=== PATIENT | female | born 1945 | race Caucasian/White ===

== ENCOUNTER → 2017-03-12 | Outpatient (CLI) | payer OTHER ==
[~2017-03-12] MED LIST: ACETAMINOPHEN325 M3 PO; ALBUTEROL2.5 MG/31 INH; ALLERGY RELIEF180 MG PO; ASPIR 8181 MG PO; B-12 DOTS500 MCG PO; CALTRATE PLUS1 EACH PO; CYCLOBENZAPRINE5 MG PO; DOCUSATE SODIU100 MG PO; DULOXETINE HCL20 MG; FENTANYL PATCH75 MCG TRANSDERM; FERROUS GLUCON324 M2 PO; FIRVANQ50 MG/1 ML PO; GABAPENTIN 100100 MG PO; HYDROCODONE-AP1 EAC6 PO; IPRAT-ALBUT 0.5-3 ML INH; K-DUR 20 MEQ T20 MEQ PO; KETOROLAC30 MG/1 M5 IM; LASIX 20 MG TAB20 MG PO; LASIX 40 MG TAB40 M1 PO; LIPITOR 20 MG T20 M1 PO; MIRALAX17 G1 PO; MIRALAX17 GM PO; OXYCODONE HCL10 MG PO; PACERONE 200 M200 M1 PO; PEPCID20 MG PO; POTASSIUM20 PO; PREDNISONE 10 M10 MG PO; PREDNISONE 20 M20 M1 PO; PREDNISONE 20 M20 MG PO; PROTONIX40 M1 PO; PYRIDOXINE HCL100 MG PO; REMERON15 MG PO; SIMVASTATIN40 MG PO; SPIRIVA INH; SYNTHROID125 MC1 PO; THERA-M1 EAC1 PO; TRAMADOL 50 MG50 MG PO; UNICOMPLEX M TA1 TA1 PO; VITAMIN B-1100 M1 PO; VITAMIN C500 M2 PO; VOLTAREN GEL 1100 G2 TOP
== END ==
LOC: HYPER 06:36
DX: S81.802A Unspecified open wound, left lower leg, initial encounter (principal); L89.613 Pressure ulcer of right heel, stage 3; L89.623 Pressure ulcer of left heel, stage 3; L97.822 Non-pressure chronic ulcer of other part of left lower leg with fat layer exposed; M62.81 Muscle weakness (generalized); G61.81 Chronic inflammatory demyelinating polyneuritis; G62.9 Polyneuropathy, unspecified; E78.5 Hyperlipidemia, unspecified; E03.9 Hypothyroidism, unspecified; Z90.710 Acquired absence of both cervix and uterus; Z72.89 Other problems related to lifestyle; X58.XXXA Exposure to other specified factors, initial encounter; Y93.89 Activity, other specified; Y92.89 Other specified places as the place of occurrence of the external cause; Y99.8 Other external cause status

== ENCOUNTER → 2017-03-26 | Outpatient (CLI) | payer OTHER | LOC: HYPER 06:46 | DX: L89.613 Pressure ulcer of right heel, stage 3 (principal); L89.623 Pressure ulcer of left heel, stage 3; L97.822 Non-pressure chronic ulcer of other part of left lower leg with fat layer exposed; M62.81 Muscle weakness (generalized); G61.81 Chronic inflammatory demyelinating polyneuritis; G62.9 Polyneuropathy, unspecified; E78.5 Hyperlipidemia, unspecified; E03.9 Hypothyroidism, unspecified; I10 Essential (primary) hypertension; F17.210 Nicotine dependence, cigarettes, uncomplicated; Z90.710 Acquired absence of both cervix and uterus; Z72.89 Other problems related to lifestyle ==

== ENCOUNTER → 2017-04-02 | Outpatient (CLI) | payer OTHER | LOC: HYPER 06:42 | DX: L97.822 Non-pressure chronic ulcer of other part of left lower leg with fat layer exposed (principal); L89.620 Pressure ulcer of left heel, unstageable; L89.610 Pressure ulcer of right heel, unstageable; M62.81 Muscle weakness (generalized); G61.81 Chronic inflammatory demyelinating polyneuritis; G62.9 Polyneuropathy, unspecified; E78.5 Hyperlipidemia, unspecified; E03.9 Hypothyroidism, unspecified; M81.0 Age-related osteoporosis without current pathological fracture; I10 Essential (primary) hypertension; Z90.710 Acquired absence of both cervix and uterus; F17.200 Nicotine dependence, unspecified, uncomplicated; Z72.89 Other problems related to lifestyle ==

== ENCOUNTER → 2017-04-09 | Outpatient (CLI) | payer OTHER | LOC: HYPER 08:13 | DX: L89.629 Pressure ulcer of left heel, unspecified stage (principal); L89.619 Pressure ulcer of right heel, unspecified stage; S81.802D Unspecified open wound, left lower leg, subsequent encounter; L84 Corns and callosities; E78.5 Hyperlipidemia, unspecified; E03.9 Hypothyroidism, unspecified; M81.0 Age-related osteoporosis without current pathological fracture; I10 Essential (primary) hypertension; G62.9 Polyneuropathy, unspecified; G61.81 Chronic inflammatory demyelinating polyneuritis; F17.200 Nicotine dependence, unspecified, uncomplicated; Z72.89 Other problems related to lifestyle; Z90.710 Acquired absence of both cervix and uterus; X58.XXXD Exposure to other specified factors, subsequent encounter ==

== ENCOUNTER → 2017-04-16 | Outpatient (CLI) | payer OTHER | LOC: HYPER 07:05 | DX: L89.623 Pressure ulcer of left heel, stage 3 (principal); L89.610 Pressure ulcer of right heel, unstageable; L97.822 Non-pressure chronic ulcer of other part of left lower leg with fat layer exposed; G62.9 Polyneuropathy, unspecified; E78.5 Hyperlipidemia, unspecified; E03.9 Hypothyroidism, unspecified; M81.0 Age-related osteoporosis without current pathological fracture; I10 Essential (primary) hypertension; F17.200 Nicotine dependence, unspecified, uncomplicated; Z90.710 Acquired absence of both cervix and uterus; Z98.49 Cataract extraction status, unspecified eye; Z72.89 Other problems related to lifestyle ==

== ENCOUNTER → 2017-04-23 | Outpatient (CLI) | payer OTHER | LOC: HYPER 06:47 | DX: L89.623 Pressure ulcer of left heel, stage 3 (principal); L89.610 Pressure ulcer of right heel, unstageable; L97.822 Non-pressure chronic ulcer of other part of left lower leg with fat layer exposed; I10 Essential (primary) hypertension; E78.5 Hyperlipidemia, unspecified; E03.9 Hypothyroidism, unspecified; M81.0 Age-related osteoporosis without current pathological fracture; G62.9 Polyneuropathy, unspecified; F17.200 Nicotine dependence, unspecified, uncomplicated; Z72.89 Other problems related to lifestyle; Z90.710 Acquired absence of both cervix and uterus; Z98.49 Cataract extraction status, unspecified eye ==

== ENCOUNTER → 2017-04-30 | Outpatient (CLI) | payer OTHER | LOC: HYPER 06:39 | DX: L89.623 Pressure ulcer of left heel, stage 3 (principal); L89.610 Pressure ulcer of right heel, unstageable; L97.822 Non-pressure chronic ulcer of other part of left lower leg with fat layer exposed; G62.9 Polyneuropathy, unspecified; E78.5 Hyperlipidemia, unspecified; E03.9 Hypothyroidism, unspecified; M81.0 Age-related osteoporosis without current pathological fracture; I10 Essential (primary) hypertension; F17.200 Nicotine dependence, unspecified, uncomplicated; Z90.710 Acquired absence of both cervix and uterus; Z98.49 Cataract extraction status, unspecified eye; Z72.89 Other problems related to lifestyle ==

== ENCOUNTER → 2017-05-14 | Outpatient (CLI) | payer OTHER | LOC: HYPER 06:46 | DX: L89.623 Pressure ulcer of left heel, stage 3 (principal); L89.610 Pressure ulcer of right heel, unstageable; L97.822 Non-pressure chronic ulcer of other part of left lower leg with fat layer exposed; E78.5 Hyperlipidemia, unspecified; E03.9 Hypothyroidism, unspecified; G61.81 Chronic inflammatory demyelinating polyneuritis; I10 Essential (primary) hypertension; G62.9 Polyneuropathy, unspecified; M81.0 Age-related osteoporosis without current pathological fracture; F17.200 Nicotine dependence, unspecified, uncomplicated; Z72.89 Other problems related to lifestyle; Z90.710 Acquired absence of both cervix and uterus ==

== ENCOUNTER → 2017-06-04 | Outpatient (CLI) | payer OTHER | LOC: HYPER 06:49 | DX: L89.623 Pressure ulcer of left heel, stage 3 (principal); L89.610 Pressure ulcer of right heel, unstageable; S81.802D Unspecified open wound, left lower leg, subsequent encounter; L97.822 Non-pressure chronic ulcer of other part of left lower leg with fat layer exposed; E78.5 Hyperlipidemia, unspecified; E03.9 Hypothyroidism, unspecified; M81.0 Age-related osteoporosis without current pathological fracture; M62.81 Muscle weakness (generalized); G61.81 Chronic inflammatory demyelinating polyneuritis; G62.9 Polyneuropathy, unspecified; F17.200 Nicotine dependence, unspecified, uncomplicated; Z90.710 Acquired absence of both cervix and uterus; X58.XXXD Exposure to other specified factors, subsequent encounter ==

== ENCOUNTER → 2017-06-18 | Outpatient (CLI) | payer OTHER | LOC: HYPER 07:47 | DX: L89.623 Pressure ulcer of left heel, stage 3 (principal); L89.610 Pressure ulcer of right heel, unstageable; L97.822 Non-pressure chronic ulcer of other part of left lower leg with fat layer exposed; M62.81 Muscle weakness (generalized); G61.81 Chronic inflammatory demyelinating polyneuritis; G62.9 Polyneuropathy, unspecified; E78.5 Hyperlipidemia, unspecified; E03.9 Hypothyroidism, unspecified; I10 Essential (primary) hypertension; F17.200 Nicotine dependence, unspecified, uncomplicated; Z90.710 Acquired absence of both cervix and uterus ==

== ENCOUNTER → 2017-07-09 | Outpatient (CLI) | payer OTHER | LOC: HYPER 06:48 | DX: L89.623 Pressure ulcer of left heel, stage 3 (principal); L89.613 Pressure ulcer of right heel, stage 3; L97.822 Non-pressure chronic ulcer of other part of left lower leg with fat layer exposed; I10 Essential (primary) hypertension; M62.81 Muscle weakness (generalized); E78.5 Hyperlipidemia, unspecified; E03.9 Hypothyroidism, unspecified; M81.0 Age-related osteoporosis without current pathological fracture; G61.81 Chronic inflammatory demyelinating polyneuritis; G62.9 Polyneuropathy, unspecified; F17.200 Nicotine dependence, unspecified, uncomplicated; Z87.01 Personal history of pneumonia (recurrent); Z90.710 Acquired absence of both cervix and uterus ==

== ENCOUNTER → 2017-07-23 | Outpatient (CLI) | payer OTHER | LOC: HYPER 06:40 | DX: L89.623 Pressure ulcer of left heel, stage 3 (principal); L89.613 Pressure ulcer of right heel, stage 3; L97.822 Non-pressure chronic ulcer of other part of left lower leg with fat layer exposed; S81.811A Laceration without foreign body, right lower leg, initial encounter; I10 Essential (primary) hypertension; E78.5 Hyperlipidemia, unspecified; E03.9 Hypothyroidism, unspecified; M81.0 Age-related osteoporosis without current pathological fracture; M62.81 Muscle weakness (generalized); G61.81 Chronic inflammatory demyelinating polyneuritis; G62.9 Polyneuropathy, unspecified; F17.200 Nicotine dependence, unspecified, uncomplicated; Z87.01 Personal history of pneumonia (recurrent); Z90.710 Acquired absence of both cervix and uterus; X58.XXXA Exposure to other specified factors, initial encounter; Y93.89 Activity, other specified; Y92.89 Other specified places as the place of occurrence of the external cause; Y99.8 Other external cause status ==

== ENCOUNTER → 2017-08-06 | Outpatient (CLI) | payer OTHER | LOC: HYPER 07:03 | DX: L89.623 Pressure ulcer of left heel, stage 3 (principal); L89.613 Pressure ulcer of right heel, stage 3; L97.828 Non-pressure chronic ulcer of other part of left lower leg with other specified severity; S81.811D Laceration without foreign body, right lower leg, subsequent encounter; M62.81 Muscle weakness (generalized); G61.81 Chronic inflammatory demyelinating polyneuritis; G62.9 Polyneuropathy, unspecified; X58.XXXD Exposure to other specified factors, subsequent encounter ==

== ENCOUNTER → 2017-08-13 | Outpatient (CLI) | payer OTHER | LOC: HYPER 07:02 | DX: L89.613 Pressure ulcer of right heel, stage 3 (principal); L89.623 Pressure ulcer of left heel, stage 3; L97.822 Non-pressure chronic ulcer of other part of left lower leg with fat layer exposed; I10 Essential (primary) hypertension; E78.5 Hyperlipidemia, unspecified; E03.9 Hypothyroidism, unspecified; M62.81 Muscle weakness (generalized); M81.0 Age-related osteoporosis without current pathological fracture; G61.81 Chronic inflammatory demyelinating polyneuritis; G62.9 Polyneuropathy, unspecified; F17.200 Nicotine dependence, unspecified, uncomplicated; Z87.01 Personal history of pneumonia (recurrent); Z90.710 Acquired absence of both cervix and uterus; Z98.49 Cataract extraction status, unspecified eye ==

== ENCOUNTER → 2017-08-27 | Outpatient (CLI) | payer OTHER | LOC: HYPER 06:51 | DX: L89.623 Pressure ulcer of left heel, stage 3 (principal); L89.613 Pressure ulcer of right heel, stage 3; S81.811D Laceration without foreign body, right lower leg, subsequent encounter; S81.802A Unspecified open wound, left lower leg, initial encounter; I10 Essential (primary) hypertension; E78.5 Hyperlipidemia, unspecified; E03.9 Hypothyroidism, unspecified; M62.81 Muscle weakness (generalized); G61.81 Chronic inflammatory demyelinating polyneuritis; G62.9 Polyneuropathy, unspecified; M81.0 Age-related osteoporosis without current pathological fracture; F17.200 Nicotine dependence, unspecified, uncomplicated; Z87.01 Personal history of pneumonia (recurrent); Z90.710 Acquired absence of both cervix and uterus; Z98.49 Cataract extraction status, unspecified eye; X58.XXXD Exposure to other specified factors, subsequent encounter; X58.XXXA Exposure to other specified factors, initial encounter; Y93.89 Activity, other specified; Y92.89 Other specified places as the place of occurrence of the external cause; Y99.8 Other external cause status ==

== ENCOUNTER 2017-09-10 13:30 | Inpatient (IN) | payer OTHER ==
[~2017-09-10] VITALS: Ht 170.2 cm; Wt 89.4 kg
[2017-09-10] VITALS (10 sets, daily range): BP systolic 84–125; BP diastolic 41–63
--- NOTE | ~2017-09-10 | HC ---
[facility] [place] [address] CONSULTATION Name: ANETA LECHUGA Room #: 455- ADM IN M.R.#: [id number] Admission: 09/10/17 Attend Phys: Dez Milan MD Discharge: Date of : 46 Report #: [id number] THIS REPORT FOR: //name// CC: Dez Kruger DATE OF SERVICE: 09/10/2017 REFERRING PROVIDER: Dr. Dez Milan. REASON FOR CONSULTATION: Traumatic left lower extremity wound with hematoma. HISTORY OF PRESENT ILLNESS: The patient is a 72-year-old female who unfortunately developed a traumatic hematoma to the left lower leg on the posterolateral aspect and developed pain and swelling with a large hematoma. Unfortunately, she developed spontaneous rupture of the skin with acute hemorrhaging and was brought to the Emergency Department with hypotension. The patient was noted to have a moderate amount of bleeding at the scene as well as in the Emergency Room; however pressure allowed for hemostasis and the wound was dressed. The patient has hypotension likely from acute blood loss anemia from the event and has been admitted to the ICU from the Emergency Room where I am asked to evaluate as the patient has nonviable tissue and a large hematoma that will be in need of clot evacuation. PAST MEDICAL HISTORY: Atrial fibrillation, depression, hypothyroidism, CHF, GERD and CIDP. HOME MEDICATIONS: Amiodarone, vitamin C, cyanocobalamin, ferrous gluconate, Neurontin, Lasix, Synthroid, MiraLax, Caltrate, Protonix, pyridoxine, prednisone, Remeron, Zocor, multivitamin, Ultram. ALLERGIES: No known drug allergies. SOCIAL HISTORY: She does not utilize tobacco or illicit drugs, does drink alcohol socially and never to excess. FAMILY HISTORY: Reviewed and noncontributory. REVIEW OF SYSTEMS: GENERAL: The patient denies nocturnal fevers or chills. HEENT: No change in vision, change in hearing. NECK: No swelling or difficulty swallowing. HEART: No chest pain or palpitations. LUNGS: No cough or shortness of breath. ABDOMEN: No nausea, no vomiting. GENITOURINARY: No dysuria or hematuria. [facility] [address] [place] [address] CONSULTATION Name: ANETA LECHUGA Room #: 455-P [facility] IN M.R.#: [id number] Admission: 09/10/17 Attend Phys: Dez Milan MD Discharge: Date of : 46 Report #: [id number] ENDOCRINE: No polyuria, polydipsia. HEMATOLOGIC: No prior history of significant bleeding, but does have easy bruising. EXTREMITIES: No history of weakness and limited range of motion. NEUROLOGIC: No history of syncope or near syncopal episodes. SKIN AND INTEGUMENT: Multiple issues with nonhealing wounds in the recent past. PSYCHIATRIC: No history of anxiety or depression. PHYSICAL EXAMINATION: VITAL SIGNS: Temperature 97.7, pulse 72, respirations 12, blood pressure 112/51. GENERAL: Alert, in no acute distress. HEENT: Normocephalic, atraumatic. Pupils equal, round, reactive to light. NECK: Supple, without lymphadenopathy. Trachea midline. HEART: Regular rate and rhythm. LUNGS: Clear to auscultation bilaterally. ABDOMEN: Soft, nontender, nondistended. GENITOURINARY: Normal external female genitalia. EXTREMITIES: No clubbing, cyanosis or edema. NEUROLOGIC: Cranial nerves 2-12 are grossly intact. PSYCHIATRIC: Normal mood and affect. SKIN AND INTEGUMENT: Left lower extremity shows palpable pulses with a large hematoma and a laceration split of the skin with a large skin flap overlying the lateral to posterior left lower leg. There is no active bleeding at this time. LABORATORY AND X-RAY DATA: CBC shows white blood cell count 9.8 thousand, hemoglobin 8.4, platelets 415,000. Creatinine is 1.6, albumin is 2.6. INR 1.00 with PTT of 21.4. Her hemoglobin unfortunately has dropped this evening from an admission level of 8.4 to 6.9. ASSESSMENT AND PLAN: A 72-year-old female with a traumatic injury to the left lower leg with a large hematoma and an open wound with a dusky overlying skin. At this time, the patient does have hemostasis and we will continue with aggressive local wound care and we will proceed to the Operating Room tomorrow morning for clot evacuation and debridement of any nonviable tissue. Risks, benefits and alternatives of that procedure have been discussed with the patient in detail and she agrees to proceed as outlined. She will be transfused as indicated by the primary care service. I sincerely appreciate this consult. We will follow along and leave any further recommendations and the patient's chart is appropriate. <ELECTRONICALLY SIGNED> By: Flory Garcia MD, FACS 09/12/17 0853 [id number] [id number] Flory Garcia MD, FACS /nt
--- NOTE | ~2017-09-10 | O ---
[facility] [place] [address] OPERATIVE REPORT Name: ANETA LECHUGA Room #: 455-P [facility] IN M.R.#: [id number] Admission: 09/10/17 Attend Phys: Dez Milan MD Discharge: Date of : 46 Report #: [id number] THIS REPORT FOR: //name// CC: Dez Cabezas [facility] DATE OF SERVICE: 09/11/2017 PREOPERATIVE DIAGNOSIS: Traumatic open wound to the left lower extremity with nonviable tissue and large hematoma. POSTOPERATIVE DIAGNOSIS: Traumatic open wound to the left lower extremity with nonviable tissue and large hematoma. PROCEDURE: Excisional debridement of necrotic skin, subcutaneous tissue and muscle/fascia from her left lower leg traumatic open wound with evacuation of a large hematoma, ultimately measuring 32 x 22 cm in dimension (704 cm2). Preoperative wound measurements were similar as the overall dimensions of the wound did not change substantially through the debridement. SURGEON: Flory Garcia MD. RADAR SCIENTIST: None. ANESTHESIA: General endotracheal anesthesia. ESTIMATED BLOOD LOSS: Minimal (less than 5 mL), although significant clot on the order of 500 mL were evacuated. SPECIMEN: Blood clot and debrided tissue to pathology. INDICATIONS: The patient is a 72-year-old female who developed a large traumatic hematoma to the posterior and lateral aspect of the left lower leg. Unfortunately, she had repeated insults to that area and had spontaneous hemorrhage with a large skin flap being created and this necessitated emergent intervention with pressure. Luckily, the patient did clot off; however, she has nonviable tissue with a large hematoma that necessitates the above-mentioned procedure today. DESCRIPTION OF PROCEDURE: After explaining the risks, benefits and alternatives of the procedure with the patient in detail in the preoperative holding area and obtaining written consent, the patient was brought to the operating room and placed supine on the operating room table. After conducting a thorough timeout procedure verifying correct patient and procedure, the patient was given general endotracheal anesthesia. Once adequate anesthesia was obtained, she was given a preoperative dose of antibiotics in line with the SCIP protocol and her left leg [address] [address] OPERATIVE REPORT Name: ANETA LECHUGA Room #: 455-P ADM IN M.R.#: [id number] Admission: 09/10/17 Attend Phys: Dez Milan MD Discharge: Date of : 46 Report #: [id number] was elevated in a candy cane stirrup. The patient's left lower leg was now circumferentially prepped and draped in standard surgical sterile fashion. I was able to elevate the skin flap and scoop out nearly 500 mL of clot. Upon doing so, the subcutaneous tissue and portions of the underlying muscle were seen to be overtly necrotic and electrocautery was used to debride all of this back to healthy vascularized tissue throughout. The skin flap itself appeared dusky and ecchymotic, however, but was not acutely necrotic and that intraoperative phone consultation with Dr. Bruner was carried out and we elected to leave the skin flap in place in the event that it would heal, it would provide significant benefit in long-term wound healing for the patient. If it does become necrotic, she will necessitate repeat debridement of this with placement of an extracellular skin graft. Nonetheless, at this juncture, the wound was copiously irrigated. Meticulous hemostasis was obtained with electrocautery. I then dressed the wound with thrombin-soaked Kerlix gauze, Xeroform over top with 4 x 4, fluffs, loose Kerlix circumferential wrap from toes to knee, and an Vaibhav wrap. At the end of the procedure, all instruments, needle and sponge counts were correct. The patient tolerated the procedure without incident, was awakened in the operating room and transitioned to the recovery room in stable condition with no apparent complications. <ELECTRONICALLY SIGNED> By: Flory Garcia MD, FACS 09/12/17 0853 [id number] [id number] Flory Garcia MD, FACS /nt
--- NOTE | ~2017-09-10 | HC ---
[facility] [place] [address] CONSULTATION Name: ANETA LECHUGA Room #: [facility] IN M.R.#: [id number] Admission: 09/10/17 Attend Phys: Dez Milan MD Discharge: Date of : 46 Report #: [id number] THIS REPORT FOR: //name// CC: Dez Cabezas [facility] DATE OF SERVICE: 09/10/2017 CHIEF COMPLAINT: Traumatic hematoma to the left lower extremity. HISTORY OF PRESENT ILLNESS: This is a 72-year-old female patient with whom I am familiar from ongoing followup in the outpatient setting. She was in fact seen this morning in the wound care clinic for a healing hematoma to her right leg and bilateral heel ulcers. All these areas were noted to be doing better and she was feeling well and happy to be back in her home setting after multiple hospitalizations and rehabilitation stays. She was at home and may have bumped her left leg on a car door. She developed pain and swelling with a spontaneous rupture of the skin and bleeding. She is brought to the Emergency Department with hypotension. She is not currently taking any blood thinners, but has been on them in the past. She was noted to have a moderate amount of bleeding at the scene, although is under control at this time. The patient has been having issues with hypotension, possibly due to multiple medications. ALLERGIES: None. MEDICATIONS: Include amiodarone, vitamin C, cyanocobalamin, ferrous gluconate, Neurontin, Lasix, Synthroid, MiraLax, Caltrate, Protonix, pyridoxine, prednisone, Remeron, Zocor, vitamins, Ultram, there may be other medications. The patient's relates that she is on 25 different medications. PAST MEDICAL HISTORY: Positive for atrial fibrillation, depression, hypothyroidism, congestive heart failure, gastroesophageal reflux, CIDP. SOCIAL HISTORY: The patient admits to occasional alcohol use. No history of smoking. REVIEW OF SYSTEMS: CONSTITUTIONAL: The patient denies fever, chills or weight loss. NEUROLOGICAL: The patient did have a brief syncopal episode at home. ENT: The patient denies earache, nasal drainage or sore throat. CARDIOVASCULAR: The patient denies chest pain or palpitations, diaphoresis. PULMONARY: The patient denies cough or shortness of breath. GASTROINTESTINAL: The patient denies nausea, vomiting, diarrhea or abdominal pain. ORTHOPEDIC: The patient does complain of pain, swelling of the left lower extremity. [facility] [address] [place] [address] CONSULTATION Name: ANETA LECHUGA Room #: 455-P [facility] IN ..#: [id number] Admission: 09/10/17 Attend Phys: Dez Milan MD Discharge: Date of : 46 Report #: [id number] Other systems in a 14-point review of systems are negative. PHYSICAL EXAMINATION: VITAL SIGNS: At this time include pulse 72, respiratory rate 12, blood pressure 112/51, temperature is 97.7. GENERAL: This is a chronically ill-appearing female patient who appears to be in moderate discomfort. HEENT: Head normocephalic. Nose and throat are clear. NECK: Supple. LUNGS: Clear. HEART: Regular rhythm. ABDOMEN: Soft, bowel sounds present. EXTREMITIES: Examination of the lower extremities demonstrate palpable distal pulses. She has a very large hematoma with a laceration or split in the skin involving the left lateral lower leg. It is not actively bleeding at this time. It is tender, however. She has a history of a previous hematoma involving the proximal portion of the right leg. This appears to be clean and granulating. Bilateral heel ulcers are noted. They are also relatively clean and granulating. NEUROLOGIC: The patient is alert and moving all 4 extremities spontaneously. She does have a foot drop on the right side, however. CLINICAL IMPRESSION: 1. Traumatic hematoma, left lower extremity. 2. Recurrent hypotension. 3. Prior pressure ulcerations to both heels, stage 3. 4. Foot drop on the right side. RECOMMENDATIONS: At this point in time, we will ask General Surgery to see her for debridement and evacuation of hematoma. It is my hope that maybe some of the overlying skin will be salvageable to make this an easier path to closure. We will ask Cardiology to see her with regard to her history of recurring persistent hypotension. We will recommend Xeroform gauze to the left leg, pending surgical evaluation. Recommend aggressive nutritional support. She is being admitted to intensive care at this time. Continue with silver alginate to both heels and right lateral leg. She may need an AFO for her right-sided foot drop. The etiology of this is unclear at this time. I appreciate being asked to see her in consultation. <ELECTRONICALLY SIGNED> By: Gordon Bruner MD 09/14/17 [id number] Gordon Bruner MD /nt
[2017-09-10 13:48] LABS: HEMATOCRIT 26.9 % (37.0-47.0); HEMOGLOBIN 8.4 gm/dL (12.0-15.0); MCH 27.4 pg (26.0-34.0); MCHC 31.3 g/dL (28.0-37.0); MCV 87.5 fL (80.0-100.0); RBC 3.08 mil/uL (4.20-5.00); RDW 23.3 % (10.5-14.5); WBC 9.8 thou/uL (4.0-11.0)
[2017-09-10 13:57] LABS: CALCIUM 8.5 mg/dL (8.5-10.1); CREATININE 1.6 mg/dL (0.6-1.0); POTASSIUM 4.4 mmol/L (3.5-5.1)
[2017-09-10] MEDS ORDERED: ACETAMINOPHEN325 M3 PO (13:59)
[2017-09-10] MEDS ORDERED: PACERONE 200 M200 M1 PO (14:00)
[2017-09-10] MEDS ORDERED: B-12 DOTS500 MCG PO (14:01)
[2017-09-10] MEDS ORDERED: VITAMIN C500 M2 PO (14:01)
[2017-09-10] MEDS ORDERED: ASPIR 8181 MG PO (14:01)
[2017-09-10] MEDS ORDERED: GABAPENTIN 100100 MG PO (14:02)
[2017-09-10] MEDS ORDERED: DOCUSATE SODIU100 MG PO (14:02)
[2017-09-10] MEDS ORDERED: FERROUS GLUCON324 M2 PO (14:02)
[2017-09-10 14:03] LABS: ALBUMIN 2.6 g/dL (3.4-5.0); APTT 21.4 Seconds (24.5-32.8); PROTIME 9.9 Seconds (9.3-11.4); TOTAL BILIRUBIN 0.4 mg/dL (<0.1-1.0); TOTAL PROTEIN 5.4 g/dL (6.4-8.2)
[2017-09-10] MEDS ORDERED: LASIX 20 MG TAB20 MG PO (14:03)
[2017-09-10] MEDS ORDERED: SYNTHROID125 MC1 PO (14:04)
[2017-09-10] MEDS ORDERED: MIRALAX17 G1 PO (14:04)
[2017-09-10] MEDS ORDERED: CALTRATE PLUS1 EACH PO (14:05)
[2017-09-10] MEDS ORDERED: PROTONIX40 M1 PO (14:20)
[2017-09-10] MEDS ORDERED: PREDNISONE 10 M10 MG PO (14:20)
[2017-09-10] MEDS ORDERED: VITAMIN B-1100 M1 PO (14:21)
[2017-09-10] MEDS ORDERED: PYRIDOXINE HCL100 MG PO (14:21)
[2017-09-10] MEDS ORDERED: REMERON15 MG PO (14:21)
[2017-09-10] MEDS ORDERED: SIMVASTATIN40 MG PO (14:21)
[2017-09-10] MEDS ORDERED: TRAMADOL 50 MG50 MG PO (14:22)
[2017-09-11] VITALS (10 sets, daily range): BP systolic 107–129; BP diastolic 52–66
[2017-09-11 04:44] LABS: CALCIUM 7.9 mg/dL (8.5-10.1); CREATININE 1.1 mg/dL (0.6-1.0); POTASSIUM 4.3 mmol/L (3.5-5.1)
[2017-09-11 05:17] LABS: MCH 27.6 pg (26.0-34.0); RBC 2.31 mil/uL (4.20-5.00)
[2017-09-11 05:19] LABS: MCV 86.4 fL (80.0-100.0)
[2017-09-11 05:21] LABS: HEMATOCRIT 19.9 % (37.0-47.0); HEMOGLOBIN 6.4 gm/dL (12.0-15.0)
[2017-09-12 04:18] VITALS: BP 120/60
[2017-09-12 06:01] LABS: HEMOGLOBIN 6.8 gm/dL (12.0-15.0); MCH 28.1 pg (26.0-34.0); MCV 86.1 fL (80.0-100.0)
[2017-09-12 06:03] LABS: MCHC 32.6 g/dL (28.0-37.0); PLATELET COUNT 336 thou/uL (150-400); RBC 2.44 mil/uL (4.20-5.00); RDW 24.1 % (10.5-14.5); WBC 9.4 thou/uL (4.0-11.0)
[2017-09-12 06:15] LABS: CALCIUM 8.4 mg/dL (8.5-10.1); CREATININE 1.3 mg/dL (0.6-1.0); POTASSIUM 3.7 mmol/L (3.5-5.1)
[2017-09-12 08:30] VITALS: BP 105/47
[2017-09-12 08:51] LABS: ABSOLUTE NEUTROPHILS 7.8 thou/uL (1.4-8.2); ANISOCYTOSIS 2+; HYPOCHROMASIA 3+; NUCLEATED RBCS 1 /100WBC; PLATELET ESTIMATE NORMAL; POIKILOCYTOSIS 1+; POLYCHROMASIA 2+
[2017-09-12 12:01] VITALS: BP 97/48; BP 98/54
[2017-09-12 15:50] VITALS: BP 98/54
[2017-09-12 15:59] VITALS: BP 98/54
[2017-09-12 20:06] VITALS: BP 104/53
[2017-09-12 20:20] LABS: HEMATOCRIT 26.1 % (37.0-47.0); HEMOGLOBIN 8.2 gm/dL (12.0-15.0); MCH 26.8 pg (26.0-34.0); MCHC 31.5 g/dL (28.0-37.0); MCV 85.2 fL (80.0-100.0); RBC 3.06 mil/uL (4.20-5.00); RDW 23.5 % (10.5-14.5); WBC 13.5 thou/uL (4.0-11.0)
[2017-09-13 04:51] VITALS: BP 124/62
[2017-09-13 07:33] VITALS: BP 113/52
[2017-09-13 17:02] VITALS: BP 119/61
[2017-09-13 19:59] VITALS: BP 114/63
[2017-09-14 05:19] VITALS: BP 135/72
[2017-09-14 05:29] LABS: HEMATOCRIT 22.9 % (37.0-47.0); HEMOGLOBIN 7.5 gm/dL (12.0-15.0); MCH 27.9 pg (26.0-34.0); MCHC 32.7 g/dL (28.0-37.0); MCV 85.3 fL (80.0-100.0); PLATELET COUNT 350 thou/uL (150-400); RBC 2.69 mil/uL (4.20-5.00); RDW 24.9 % (10.5-14.5); WBC 7.7 thou/uL (4.0-11.0)
[2017-09-14 08:00] VITALS: BP 147/74
[2017-09-14 09:26] LABS: ABSOLUTE NEUTROPHILS 6.2 thou/uL (1.4-8.2)
[2017-09-14 09:27] LABS: ANISOCYTOSIS 2+; BURR CELLS OCCASIONAL; OVALOCYTES 1+; TEARDROPS OCCASIONAL
[2017-09-14 15:37] VITALS: BP 123/68
[2017-09-14 19:39] VITALS: BP 122/64
[2017-09-15 03:35] VITALS: BP 160/83
[2017-09-15 06:14] LABS: HEMATOCRIT 24.6 % (37.0-47.0); MCH 27.7 pg (26.0-34.0); MCHC 32.3 g/dL (28.0-37.0); MCV 85.6 fL (80.0-100.0); PLATELET COUNT 370 thou/uL (150-400); RBC 2.88 mil/uL (4.20-5.00); RDW 24.2 % (10.5-14.5); WBC 7.3 thou/uL (4.0-11.0)
[2017-09-15 06:49] LABS: ANISOCYTOSIS 1+; METAMYELOCYTES 1 %
[2017-09-15 08:00] VITALS: BP 143/82
[2017-09-15 16:00] VITALS: BP 120/64
[2017-09-15 19:30] VITALS: BP 139/72
[2017-09-16 04:53] VITALS: BP 144/80
[2017-09-16 08:57] VITALS: BP 140/65
[2017-09-16 16:38] VITALS: BP 116/52
[2017-09-16 19:31] VITALS: BP 102/54
[2017-09-17 04:10] VITALS: BP 121/65
[2017-09-17 07:35] VITALS: BP 128/58
[2017-09-17 09:36] VITALS: BP 98/54
[2017-09-17] MEDS ORDERED: PREDNISONE 20 M20 M1 PO (10:40)
== END 2017-09-17 16:30 | disposition short-term general hospital (02) | DRG 579 ==
LOC: ER 13:30 → ICU 14:26 → EROBS 14:26 → ICU 15:03 → 4W 09-11 18:46
PROVIDERS: Emergency Medicine; Hospitalist; Surgery
PROC: 0HCLXZZ Extirpation of Matter from Left Lower Leg Skin, External Approach (ICD-10-PCS; principal; 2017-09-11)
PROC: 0KBT0ZZ Excision of Left Lower Leg Muscle, Open Approach (ICD-10-PCS; principal; 2017-09-11)
PROC: 30233N1 Transfusion of Nonautologous Red Blood Cells into Peripheral Vein, Percutaneous Approach (ICD-10-PCS; principal; 2017-09-11)
DX: S80.12XA Contusion of left lower leg, initial encounter (principal); L89.623 Pressure ulcer of left heel, stage 3; L89.613 Pressure ulcer of right heel, stage 3; D62 Acute posthemorrhagic anemia; G61.81 Chronic inflammatory demyelinating polyneuritis; S81.812A Laceration without foreign body, left lower leg, initial encounter; F32.9 Major depressive disorder, single episode, unspecified; E03.9 Hypothyroidism, unspecified; I50.9 Heart failure, unspecified; K21.9 Gastro-esophageal reflux disease without esophagitis; I95.9 Hypotension, unspecified; I11.0 Hypertensive heart disease with heart failure; E11.40 Type 2 diabetes mellitus with diabetic neuropathy, unspecified; E78.00 Pure hypercholesterolemia, unspecified; G47.33 Obstructive sleep apnea (adult) (pediatric); I48.0 Paroxysmal atrial fibrillation; S81.802A Unspecified open wound, left lower leg, initial encounter; E78.5 Hyperlipidemia, unspecified; J84.17 Other interstitial pulmonary diseases with fibrosis in diseases classified elsewhere; M21.371 Foot drop, right foot; Z79.82 Long term (current) use of aspirin; Z79.899 Other long term (current) drug therapy; Z98.49 Cataract extraction status, unspecified eye; Z90.49 Acquired absence of other specified parts of digestive tract; Z90.710 Acquired absence of both cervix and uterus; Z87.891 Personal history of nicotine dependence; Z87.81 Personal history of (healed) traumatic fracture; Z79.52 Long term (current) use of systemic steroids; Z82.49 Family history of ischemic heart disease and other diseases of the circulatory system; X58.XXXA Exposure to other specified factors, initial encounter; Y93.89 Activity, other specified; Y92.89 Other specified places as the place of occurrence of the external cause; Y99.8 Other external cause status
CPT/HCPCS: 10045; 10078; 50010; 50101; 50386; 57091; 62110; 62900; 64037; 70005

== ENCOUNTER 2017-09-17 12:45 | Inpatient (IN) | payer OTHER ==
[~2017-09-17] VITALS: Ht 170.2 cm; Wt 87.7 kg
--- NOTE | ~2017-09-17 | PLAN ---
[facility] [place] [address] REHAB UNIT PLAN OF CARE Name: ANETA LECHUGA Room #: 515-P ADM IN M.R.#: [id number] Admission: 09/17/17 Attend Phys: Deon Salazar MD Discharge: Date of : 46 Report #: [id number] THIS REPORT FOR: //name// CC: Deon Cabezas [facility] DATE OF SERVICE: 09/19/2017 PROGRESS NOTE/OVERALL PLAN OF CARE SUBJECTIVE: The patient is seen back today in followup. Last recorded temperature 37, pulse 77, respirations 16, blood pressure 106/53. The patient is in no distress. No focal calf swelling. Transfers are max assist. Gait is max assist to 8 feet in the parallel bars. Bed mobility is max assist. ASSESSMENT: 1. Chronic inflammatory demyelinating polyneuropathy. 2. Medical complexity with generalized debilitation. 3. Left lower extremity traumatic hematoma status post clot evacuation with debridement on 09/11/2017. 4. Acute blood loss anemia. 5. Hypotension, resolving. 6. Anxiety with depression. 7. Right foot drop. 8. Hyperlipidemia. 9. Hypothyroidism. PLAN: The overall plan of care is based on the preadmission screen, post-admission physician evaluation, and information garnered from therapy assessments. 1. Estimated length of stay is probably at least 2 weeks to 3 weeks pending progress. 2. Medical prognosis is reasonably good. 3. Anticipated interventions include the interdisciplinary acute inpatient rehabilitation program with PT and OT, working with her rehab nursing assisting regarding medication management, skin care prophylaxis, bowel and bladder issues and nursing education. Case management is involved as well as the interdisciplinary rehab therapy team. 4. Anticipated functional outcomes would be for her to achieve a level with basic transfers at the wheelchair level so that she can return back to the home setting. Ideally, she could take some small steps with the front-wheeled walker as well. We will need to see how she does. 5. Discharge destination is back home with her . 6. Expected therapy by discipline includes PT and OT 1 and 1-1/2 hours per day, [address] [address] REHAB UNIT PLAN OF CARE Name: ANETA LECHUGA Room #: 515-P [facility] IN M.R.#: [id number] Admission: 09/17/17 Attend Phys: Deon Salazar MD Discharge: Date of : 46 Report #: [id number] each five days a week throughout the duration of the acute inpatient rehabilitation stay. <ELECTRONICALLY SIGNED> By: Deon Salazar MD 09/23/17 1528 [id number] 0027 Deon Salazar MD /nt
--- NOTE | ~2017-09-17 | HC ---
[facility] [place] [address] CONSULTATION Name: ANETA LECHUGA Room #: 515-P [facility] IN M.R.#: [id number] Admission: 09/17/17 Attend Phys: Deon Salazar MD Discharge: Date of : 46 Report #: [id number] THIS REPORT FOR: //name// CC: Deon Cabezas [facility] DATE OF SERVICE: 09/18/2017 REFERRING PROVIDER: Deon Salazar M.D. REASON FOR CONSULTATION: Left lower extremity wound. HISTORY OF PRESENT ILLNESS: The patient is a 72-year-old female who was admitted a week ago with a traumatic injury to the left lower extremity with large hematoma and a skin flap with necrotic tissue and hematoma. The patient underwent debridement of the wound with ongoing wound care and has now been admitted to the inpatient rehabilitation unit, and I am asked to evaluate and follow for her wound as there is a questionably viable skin flap that may necessitate ongoing debridement. The patient is resting in bed currently and has no complaints today. PAST MEDICAL HISTORY: Atrial fibrillation, depression, hypothyroidism, CHF, GERD and CIDP. HOME MEDICATIONS: Amiodarone, vitamin C, cyanocobalamin, ferrous gluconate, Neurontin, Lasix, Synthroid, MiraLax, Caltrate, Protonix, pyridoxine, prednisone, Remeron, Zocor, multivitamin and Ultram. ALLERGIES: No known drug allergies. SOCIAL HISTORY: No tobacco or illicit drugs, does drink alcohol socially and never to excess. FAMILY HISTORY: Reviewed and noncontributory. REVIEW OF SYSTEMS: GENERAL: The patient denies nocturnal fevers or chills. HEENT: No change of vision, change in hearing. NECK: No swelling or difficulty swallowing. HEART: No chest pain or palpitations. LUNGS: No cough or shortness of breath. ABDOMEN: No nausea or vomiting. GENITOURINARY: No dysuria or hematuria. ENDOCRINE: No polyuria, polydipsia. HEMATOLOGIC: No prior history of bleeding, but does have easy bruising. EXTREMITIES: No history weakness or limited range of motion. [facility] [address] [place] [address] CONSULTATION Name: ANETA LECHUGA Room #: 515-P [facility] IN M.R.#: [id number] Admission: 09/17/17 Attend Phys: Deon Salazar MD Discharge: Date of : 46 Report #: [id number] NEUROLOGIC: No history of syncope or near syncopal episodes. SKIN AND INTEGUMENT: Multiple issues with nonhealing wounds in the past. PSYCHIATRIC: No history of anxiety or depression. PHYSICAL EXAMINATION: VITAL SIGNS: Temperature 98.2, pulse 78, respirations 16, blood pressure 128/63. GENERAL: Alert, in no acute distress. HEENT: Normocephalic, atraumatic. Pupils equal, round, reactive to light. NECK: Supple, without lymphadenopathy. Trachea is midline. HEART: Regular rate and rhythm. LUNGS: Clear to auscultation bilaterally. ABDOMEN: Soft, nontender, nondistended. GENITOURINARY: Normal external female genitalia. EXTREMITIES: No clubbing, cyanosis or edema. NEUROLOGIC: Cranial nerves 2-12 are grossly intact. PSYCHIATRIC: Normal mood and affect. SKIN AND INTEGUMENT: Left lower extremity wound is currently dressed with reports of currently viable skin flap. LABORATORY AND X-RAY DATA: No current labs today. ASSESSMENT AND PLAN: A 72-year-old female with a traumatic injury to the left lower leg that underwent debridement with a hematoma clot evacuation. The patient does have a large skin flap after debridement that was left in place due to questionable viability and this is undergoing aggressive local wound care at this time. Currently, the skin flap does appear that it may be viable and as such, we will continue aggressive local wound care, optimization of her nutritional status and monitoring. If her flap does become nonviable or necrotic, she would necessitate repeat debridement. She should continue with all other medical cares as current including aggressive inpatient rehabilitative efforts. I sincerely appreciate this consult. I will follow along and leave any further recommendations in the patient's chart as appropriate. <ELECTRONICALLY SIGNED> By: Flory Garcia MD, FACS 09/22/17 0938 [id number] [id number] Flory Garcia MD, FACS /nt
--- NOTE | ~2017-09-17 | HC ---
[facility] [place] [address] CONSULTATION Name: ANETA LECHUGA Room #: 515-P ADM IN M.R.#: [id number] Admission: 09/17/17 Attend Phys: Deon Salazar MD Discharge: Date of : 47 Report #: [id number] THIS REPORT FOR: //name// CC: Deon Kruger REFERRAL PHYSICIAN: Dr. Salazar. PRIMARY PHYSICIAN: Dr. Jocelynn Kruger. REASON FOR REFERRAL: Hypoxia. HISTORY OF PRESENT ILLNESS: The patient is a 72-year-old white female who was admitted to the rehabilitation unit for ongoing therapy for weakness. Since admission, she was found to be hypoxic. She is felt to have COPD. A pulmonary consultation was requested. The patient states she has smoked most of her life. She quit smoking about a year ago. She is not aware of COPD, though she states that she will be surprised if she does not. She patient denies being on any inhalers in the past. She has not needed to use oxygen therapy in the past. Currently, she denies any dyspnea, chest pain, productive cough, night sweats or chills. She has been diagnosed with chronic inflammatory demyelinating polyneuropathy resulting in paresthesias involving her lower extremities. This was noted about a year ago. She has undergone therapy at [facility]. Treatment included apheresis. There was some improvement until recently. Because of the polyneuropathy, she did have mild trauma to the lower extremity resulting in hematoma. This involved the left lower extremity with large hematoma requiring a clot evacuation and debridement of necrotic tissue. Note, the patient had been on anticoagulation for atrial fibrillation. PAST MEDICAL HISTORY: As mentioned above. Also includes hypertension, paroxysmal atrial fibrillation, had been on anticoagulant, which was discontinued, I believe she was on Xarelto or Eliquis, apparent history of chronic inflammatory demyelinating polyneuropathy, anemia, DARWIN, right foot drop, depression, hyperlipidemia, anxiety disorder. PAST SURGICAL HISTORY: Cholecystectomy, hysterectomy, cataract surgery. ALLERGIES: None to medications. HOME MEDICATIONS: List reviewed as in MAY. [facility] [address] [place] [address] CONSULTATION Name: ANETA LECHUGA Room #: 515-P [facility] IN M.R.#: [id number] Admission: 09/17/17 Attend Phys: Deon Salazar MD Discharge: Date of : 47 Report #: [id number] FAMILY HISTORY: Noncontributory. SOCIAL HISTORY: The patient has smoked more than 57 years, quit about a year ago. She denies any alcohol use. She is . REVIEW OF SYSTEMS: As mentioned above. It is notable for progressive weakness, particularly involving the lower extremities due to chronic inflammatory demyelinating polyneuropathy. She had been requiring the use of a walker; at times, a wheelchair to get around. Otherwise, 10-point system review is negative. PHYSICAL EXAMINATION: GENERAL: She is awake, alert, in no apparent distress. VITAL SIGNS: Temperature is 97.4 degrees Fahrenheit, pulse is 70, respiratory rate is 18, blood pressure 130/60 mmHg and saturation 96%. HEENT: Normocephalic, atraumatic. NECK: Supple, without any lymphadenopathy or thyromegaly. CHEST: Breath sounds are good bilaterally without any rales or wheezes. CARDIOVASCULAR: Normal S1, S2. No murmurs or gallop. There is no JVD. There is no carotid bruit. Pulses are 2+/4+ bilaterally. ABDOMEN: Soft, nontender, no organomegaly or masses felt. GENITOURINARY: Deferred. RECTAL: Deferred. EXTREMITIES: No cyanosis or clubbing, mild edema in lower extremities. Both lower extremities are wrapped with surgical dressing. LABORATORY DATA: Chest x-ray shows cardiomegaly, mild linear atelectasis seen in the left lower lobe and in the left upper and lower lung woody. Echocardiogram showed normal LV function, mild diastolic dysfunction. Some [id number]-xnnbeeft mitral regurgitation, pulmonary artery pressure mmHg. CT of the lumbar spine shows advanced degenerative disk space changes, moderate spinal stenosis. Electrolytes are normal, creatinine is 1.1, hemoglobin 10.3, WBC 7700, platelets are normal. Albumin 3.1. IMPRESSION: 1. Acute hypoxic respiratory failure in a 72-year-old white female. Etiology is probably related to underlying chronic obstructive pulmonary disease with a component of mild atelectasis. 2. Obstructive sleep apnea, this will need to be addressed. It does not appear the patient is on CPAP. 3. Chronic inflammatory demyelinating polyneuropathy with progressive weakness and debility, paresthesia involving the lower extremities. Recent left lower extremity trauma, hematoma with clot evacuation. Anticoagulation has been on hold. 4. Permanent atrial fibrillation, anticoagulation on hold due to above. 5. Recent acute blood loss anemia. [facility] [address] [place] [place] [address] CONSULTATION Name: ANETA LECHUGA Room #: 515-P [facility] IN M.R.#: [id number] Admission: 09/17/17 Attend Phys: Deon Salazar MD Discharge: Date of : 46 Report #: [id number] 6. Anxiety, depression. 7. Right foot drop. 8. Hypothyroidism. RECOMMENDATION: We will resume bronchodilators q.i.d. p.r.n., chest physiotherapy including incentive spirometry is recommended, but will try to address as treating underlying sleep apnea, which would also help with hypoxia. DVT and GI prophylaxis recommended. Once the wounds are healed, would recommend considering DVT prophylaxis doses, heparin or Lovenox if okay with medical team. Thank you for this consultation. <ELECTRONICALLY SIGNED> By: Surjit Del Valle MD 10/01/17 1645 1532 [id number] Surjit Del Valle MD /nt
--- NOTE | ~2017-09-17 | H ---
[facility] [place] [address] HISTORY AND PHYSICAL Name: ANETA LECHUGA Room #: 515-P ADM IN M.R.#: [id number] Admission: 09/17/17 Attend Phys: Deon Salazar MD Discharge: Date of : 46 Report #: [id number] THIS REPORT FOR: //name// CC: Deon Kruger HISTORY OF PRESENT ILLNESS: This is a 72-year-old female admitted to the hospital for a left lower extremity hematoma with spontaneous rupture at home and significant bleeding. She required clot evacuation and debridement of necrotic tissue performed on 09/11/2017. She has had symptomatic hypotension post-procedure and prior to procedure. Due to generalized debility, exacerbated by her chronic inflammatory demyelinating polyneuropathy, she has now been admitted to acute inpatient rehab for further physical and occupational therapies. Today, she reports no active drainage from her legs. They are currently with compression wraps on. She does report chronic pain in her leg. She has decreased sensation in her feet. She has numbness and tingling that comes and goes in her lower extremities. She denies cough or shortness of air; however, she is on 2 liters oxygen per nasal cannula that has been new since the beginning of this month. She is hoping to get off the oxygen soon. She denies constipation or dysuria. PAST MEDICAL HISTORY: Hypertension, paroxysmal atrial fibrillation, COPD, CIDP, anemia, obstructive sleep apnea, cataracts, cholecystectomy, hysterectomy, anxiety, depression, hyperlipidemia, right foot drop. HABITS: Quit smoking over a year ago and prior to that, smoker of cigarettes for 57 years. Denies alcohol or illicit drug use. SOCIAL HISTORY: She is . She lives in a house with her . All living on main level. Premorbidly, utilize front wheel walker and a manual wheelchair. She was able to complete transfers with the use of a walker with some assistance from her . She was able to ambulate in and out of the bathroom. She otherwise utilized the manual wheelchair for other mobilities. Her provides the IADLs. The patient was independent for feeding, upper body grooming, upper body dressing and bathing and her assisted with the lower body bathing and dressing. ALLERGIES: No known drug allergies. MEDICATIONS: Thiamine 100 mg daily, vitamin B6 100 mg daily, Protonix 40 mg daily, Lasix 20 mg daily, vitamin B12 500 mcg daily, calcium plus vitamin D 1 tablet daily, amiodarone 200 mg daily, [place] 5/325 one tablet q. 6 hours p.r.n., Synthroid 125 mcg daily, gabapentin 100 mg t.i.d., Remeron 15 mg at bedtime, iron 325 twice a day, Lipitor 20 mg at bedtime, vitamin C 500 mg twice a day, MiraLax 17 g daily, Tylenol 650 mg b.i.d. p.r.n., Senna 1 mg daily p.r.n., milk of mag 10 mL daily p.r.n., Colace 100 mg twice a day p.r.n., bisacodyl suppository at bedtime p.r.n. [address] [address] HISTORY AND PHYSICAL Name: ANETA LECHUGA Room #: 515-P [facility] IN M.R.#: [id number] Admission: 09/17/17 Attend Phys: Deon Salazar MD Discharge: Date of : 46 Report #: [id number] REVIEW OF SYSTEMS: Remainder of her 12-point review of systems is negative except as listed in the HPI. PHYSICAL EXAMINATION: VITAL SIGNS: Blood pressure 131/63, pulse of 69, temperature 97.8. She is 95% oxygen on room air. GENERAL: She is awake, alert. She is oriented x 3. She is in no acute distress. She is on oxygen via nasal cannula. HEENT: Head is normocephalic. Eyes: EOMs are intact. CHEST: Lungs are diminished. No crackles, no wheeze. CARDIAC: S1, S2. ABDOMEN: Obese. Bowel sounds positive, soft, nontender, nondistended. EXTREMITIES: She has compression Vaibhav wraps with dressings from feet to below knees. They appear clean, dry and intact. She is tender with minimal touch; however, she has also very decreased sensation in her feet and lower extremities. She has bruising to upper and lower extremities. She has skin tears to the right upper extremity. She has functional range of motion in her bilateral upper extremities. No clonus or rigidity. Lower extremities: She is unable to lift antigravity. At present, she reports feeling fatigued, however. Positive edema bilateral lower extremities. Negative Homans sign. She is dependent for lower body dressing. She is max assist for bathing. Sit to stand is mod assist. Supine to sit is max assist. NEUROLOGIC: Anxiety, right foot drop. SKIN: As noted above. LABORATORY DATA: Vitamin B12 1317 on 09/18. 09/18, sodium 148, potassium 3.7, BUN 23, creatinine 1.0. WBCs 5.5, hemoglobin 8.0, platelets 381. ASSESSMENT: 1. Chronic inflammatory demyelinating polyneuropathy. 2. Medical complexity with generalized debility. 3. Left lower extremity traumatic hematoma status post clot evacuation with debridement on 09/11/2017. 4. Acute blood loss anemia. 5. Hypotension, resolving. 6. Anxiety with depression. 7. Right foot drop. 8. Hyperlipidemia. 9. Hypothyroidism. PLAN: The patient has been admitted to inpatient rehab for both physical and occupational therapies with the goal to return back to her home setting with her . Hospitalist will continue to follow to manage any acute medical issues that may arise. She is a full code status. She is on a low salt, 2 g sodium diet. We will continue to monitor her hemoglobin. Wound care physician and [address] [address] HISTORY AND PHYSICAL Name: ANETA LECHUGA Room #: 515-[facility] IN ..#: [id number] Admission: 09/17/17 Attend Phys: Deon Salazar MD Discharge: Date of : 46 Report #: [id number] nurse will continue to follow along with General Surgery for any further wound care needs. <ELECTRONICALLY SIGNED> By: NIGHAT Azevedo 09/19/17 1604 1557 1800 NIGHAT Azevedo /nt
--- NOTE | ~2017-09-17 | HC ---
[facility] [address] [place] [address] CONSULTATION Name: ANETA LECHUGA Room #: 515-P [facility] IN M.R.#: [id number] Admission: 09/17/17 Attend Phys: Deon Salazar MD Discharge: Date of : 46 Report #: [id number] THIS REPORT FOR: //name// CC: Deon Cabezas [facility] DATE OF SERVICE: 09/21/2017 NEUROBEHAVIORAL STATUS EXAM ATTENDING PHYSICIAN: Deon Salazar MD BEAUTY SPECIALIST: Giovanni Granger, PhD CLINICAL PRESENTATION: The patient is a 72-year-old female admitted to the rehab unit at [facility] for comprehensive inpatient rehabilitation program to improve functional mobility, activities of daily living and self-care and mental status secondary to deficits from chronic inflammatory demyelinating polyneuropathy. Her assessment includes medical complexity with generalized debility, left lower extremity traumatic hematoma status post clot evacuation with debridement, acute blood loss anemia, hypotension, anxiety with depression, right foot drop, hyperlipidemia and hypothyroidism. A complete description of her medical condition and history can be found in her medical record. Neuropsychological consultation was requested to provide assistance in the assessment of cognitive and emotional status and to provide recommendations and services. The patient reported her history of symptoms developing within the past 12 months. Increased anxiety has been sustained as a result of uncertainty regarding her diagnosis and medical well being. The patient has 2 children that live outside the [place] area. Her is supportive . 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 TECHNIQUES UTILIZED: Clinical interview, review of medical records, staff consultation and behavioral observation, mini mental status exam 2 standard version. EXAMINATION FINDINGS: The patient was alert and cooperative with the assessment. She does not report auditory or visual hallucinations. There is no evidence of aphasia. She reports her memory is within normal limits. Occasional difficulty with word finding, subjective anxiety and depression are reported. She describes a period of amnesia surrounding her initial hospitalization. Alcohol use is somewhat elevated. Her performance on the MMSE 2 brief version is within normal limits with a raw [facility] [address] [place] [address] CONSULTATION Name: ANETA LECHUGA Room #: 515-P [facility] IN .R.#: [id number] Admission: 09/17/17 Attend Phys: eDon Salazar MD Discharge: Date of : 46 Report #: [id number] score of 14/16. She was 1/3 for immediate recall of 3 items after a brief time delay and distraction. Her performance on the MMSE 2 standard version is within normal limits with a raw score 28/30. She was able to copy a simple geometric design. In general, neurocognitive functioning appear to be within normal limits with some subtle difficulty in memory suggested. The patient does report anxiety in regard to her physical well being as well as uncertainty about her progress in recovery and prognosis along with overall general recovery. DIAGNOSTIC IMPRESSION: Unspecified anxiety disorder. RECOMMENDATIONS: I instructed the patient in a relaxation technique to assist in the management of anxiety. Instructions and techniques to manage anxiety will be of benefit to assist overall recovery. The patient will benefit from recognition of strengths and encouragement in recognizing her ability to progress independently with less reliance on others. Relaxation techniques were reviewed for which she had a good response. Cognitive function appears to be within normal limits at this time. Thank you very much for allowing me to provide the consultation on this patient. <ELECTRONICALLY SIGNED> By: Giovanni Granger, PhD 09/27/17 1334 1516 1608 Giovanni Granger, PhD /nt
--- NOTE | ~2017-09-17 | 2DMMODE ---
[facility] [address] [place] [address] 2 D/M-MODE ECHOCARDIOGRAM Name: ANETA LECHUGA Room #: 515-P [facility] IN M.R.#: [id number] Admission: 09/17/17 Attend Phys: Deon Salazar, Discharge: Date of : 47 Date of Service: 09/29/17 1636 Report #: [id number] THIS REPORT FOR: //name// APPROVED REPORT Study performed: 09/29/2017 14:21:29 EXAM: Comprehensive 2D, Doppler, and color-flow Echocardiogram Patient Location: Bedside Room #: 515 Status: routine BSA: 2.00 HR: 72 bpm BP: 148/83 mmHg Rhythm: NSR Other Information Study Quality: Adequate Indications Dyspnea 2D Dimensions RVDd: 36.12 mm LVEF(%): 40.00 (>50%) IVSd: 12.21 (7-11mm) LVOT Diam: 22.83 (18-24mm) LVDd: 57.48 mm PWd: 12.14 (7-11mm) Ascending Ao: 30.83 (22-36mm) LVDs: 46.11 (25-40mm) Aortic Root: 33.21 mm IVC: 23.00 mm Arroyo's LVEF: 40.00 % Volumes Left Atrial Volume (Systole) Single Plane 4CH: 77.54 mL Single Plane 2CH: 65.04 mL LA ESV Index: 41.00 mL/m2 Aortic Valve AoV Peak Curtis.: 1.55 m/s AO Peak Gr.: 9.63 mmHg LVOT Max P.72 mmHg LVOT Max V: 0.83 m/s RAMANA Vmax: 2.18 cm2 Mitral Valve E/A Ratio: 0.9 MV Decel. Time: 230.91 ms [facility] [place] [address] 2 D/M-MODE ECHOCARDIOGRAM Name: ANETA LECHUGA Room #: 515-P [facility] IN M.R.#: [id number] Admission: 09/17/17 Attend Phys: Deon Salazar, Discharge: Date of : 47 Date of Service: 09/29/17 1636 Report #: [id number] MV E Max Curtis.: 0.91 m/s MV A Curtis.: 1.02 m/s MV PHT: 66.97 ms IVRT: 156.86 ms Pulmonary Valve PV Peak Curtis.: 1.12 m/s PV Peak Gr.: 5.01 mmHg Pulmonary Vein P Vein S: 0.39 m/s P Vein A: 0.29 m/s P Vein D: 0.33 m/s P Vein A Dur.: 152.2 msec P Vein S/D Ratio: 1.18 Tricuspid Valve TR Peak Curtis.: 2.80 m/s TR Peak Gr.: 31.29 mmHg PA Pressure: 41.00 mmHg Left Ventricle The left ventricle is normal size. There is normal LV segmental wall motion. Mild concentric left ventricular hypertrophy. The left ventricular systolic function is normal. The left ventricular ejection fraction is within the normal range. LVEF is 50-55%. Grade I - abnormal relaxation pattern. Right Ventricle The right ventricle is normal size. The right ventricular systolic function is normal. Atria Left atrium is dilated. Right atrium is dilated. Aortic Valve Aortic valve is mildly sclerotic No aortic regurgitation is present. There is no aortic valvular stenosis. Mitral Valve The mitral valve is normal in structure. Mild to moderate mitral regurgitation. No evidence of mitral valve stenosis. Tricuspid Valve The tricuspid valve is normal in structure. There is trace to mild tricuspid regurgitation. Estimated PAP 40 mmHg. There is moderate pulmonary hypertension. Pulmonic Valve [address] [address] 2 D/M-MODE ECHOCARDIOGRAM Name: ANETA LECHUGA Room #: 515-P [facility] IN [facility]#: [id number] Admission: 09/17/17 Attend Phys: Deon Salazar, Discharge: Date of : 47 Date of Service: 09/29/17 1636 Report #: [id number] The pulmonary valve is normal in structure. Trace pulmonic regurgitation. Great Vessels The aortic root is normal in size. IVC is dilated and collapses >50% with inspiration. Pericardium There is no pericardial effusion. <Conclusion> The left ventricular systolic function is normal. There is normal LV segmental wall motion. LVEF is 50-55%. Mild diastolic dysfunction Aortic valve is mildly sclerotic. No aortic regurgitation or stenosis The mitral valve is normal in structure. Mild to moderate mitral regurgitation. There is trace to mild tricuspid regurgitation. Estimated pulmonary artery pressure of 40 mmHg. There is no pericardial effusion. <ELECTRONICALLY SIGNED> By: Leonel Box MD, FACC 09/29/17 1636 1636 1636 Leonel Box MD, FACC /INF
--- NOTE | ~2017-09-17 | H ---
[facility] [place] [address] HISTORY AND PHYSICAL Name: ANETA LECHUGA Room #: 515-P ADM IN M.R.#: [id number] Admission: 09/17/17 Attend Phys: Deon Salazar MD Discharge: Date of : 46 Report #: [id number] THIS REPORT FOR: //name// CC: Deon Cabezas [facility] DATE OF SERVICE: 09/17/2017 HISTORY AND PHYSICAL/POST-ADMISSION PHYSICIAN EVALUATION HISTORY OF PRESENT ILLNESS: Please see my prior progress note from yesterday as well as Liyah Low's dictated history and physical. I agree with the above. The patient has the history of chronic inflammatory demyelinating polyneuropathy and significant lower extremity weakness with a right foot drop, was a premorbid limited walker ambulator. She had a left lower extremity traumatic hematoma that spontaneously ruptured and she underwent clot evacuation with debridement of necrotic tissue on 09/11/2017. She had problems with hypotension postoperatively. She has bilateral lower extremity weakness. She was noted to have a significant decline from her premorbid functional status. She has now been admitted for acute in-hospital inpatient rehabilitation. Allergies, past medical history, past surgical history, family history, habits, and social history: Please see Liyah Low's nurse practitioner dictation. REVIEW OF SYSTEMS: The patient had no complaints of chest pain, shortness of breath, or abdominal discomfort. She has some discomfort of her lower extremities as expected with the multiple wounds that she has with wound care involved. She has the lower extremity weakness and has concerns with her decrease in function. PHYSICAL EXAMINATION: GENERAL: She was seen earlier today and was in no distress. Sleepy, but arousable. VITAL SIGNS: Temperature 98.5, pulse 60, respirations 24, blood pressure 125/66. HEENT: Facies appeared symmetric. CHEST: Sounded clear to auscultation. CARDIOVASCULAR: Regular rate and rhythm. ABDOMEN: Obese, bowel sounds positive, nontender. GENITOURINARY AND RECTAL: Deferred. EXTREMITIES: Functional range of motion of the upper extremities with strength grade 3+. Mild tremor, left hand. No clonus. She does have multiple ecchymoses with frail, thin skin. Lower extremities: She has bilateral Vaibhav wrap to the knees. Negative Homans sign. Strength is a grade 3. She has been dependent for bed mobility, sit to stand has been max assist, with sit to supine, max assist. [facility] [address] [place] [address] HISTORY AND PHYSICAL Name: ANETA LECHUGA Room #: 515-P [facility] IN ..#: [id number] Admission: 09/17/17 Attend Phys: Deon Salazar MD Discharge: Date of : 47 Report #: [id number] ASSESSMENT: 1. Chronic inflammatory demyelinating polyneuropathy. 2. Medical complexity with generalized debilitation. 3. Left lower extremity traumatic hematoma, status post clot evacuation and debridement. 4. Prior hematoma, right lower leg. 5. Stage 3 pressure ulcers of both heels. 6. Right foot drop. 7. Recent acute blood loss anemia. 8. Recent hypotension. 9. Anxiety and depression. 10. Hyperlipidemia. PLAN: The patient is admitted for acute in-hospital inpatient rehabilitation. From a postadmission physician evaluation perspective, there are no relevant changes since the preadmission screening. Please see the above review of prior and current medical and functional conditions and comorbidities. Please see the patient's previous and current functional status. As far as risk of complications, she does have the multiple medical comorbidities as noted above. Initial plan of care involves the interdisciplinary acute inpatient rehabilitation program with goal of maximizing the patient's functional independence, so that she can hopefully return back to her prior living situation. The goal would be for her to try to improve as far as basic transfers, so that she can hopefully at least achieve a wheelchair level, so she can return back to the home setting. She needs to be at a point where the can assist her as far as basic transfers and short distance functional mobility. Prognosis is reasonably good with estimated length of stay probably fairly long 2-3 weeks pending progress. Potential barriers would include her multiple medical comorbidities and decreased functional status. The patient meets diagnostic criteria for an acute in-hospital inpatient rehabilitation stay. She does meet medical necessity criteria. She has the multiple lending consultant physicians, which will be asked to continue to follow while she is on rehabilitation. She has the tolerance for an acute inpatient rehabilitation program and has appropriate discharge goals back to the home setting. <ELECTRONICALLY SIGNED> By: Deon Salazar MD 09/23/17 1528 1134 1157 Deon Salazar MD /nt
[~2017-09-17 12:45] MED LIST changes: -ALBUTEROL2.5 MG/31 INH; -ALLERGY RELIEF180 MG PO; -CYCLOBENZAPRINE5 MG PO; -DULOXETINE HCL20 MG; -FENTANYL PATCH75 MCG TRANSDERM; -FIRVANQ50 MG/1 ML PO; -HYDROCODONE-AP1 EAC6 PO; -IPRAT-ALBUT 0.5-3 ML INH; -K-DUR 20 MEQ T20 MEQ PO; -KETOROLAC30 MG/1 M5 IM; -LASIX 40 MG TAB40 M1 PO; -LIPITOR 20 MG T20 M1 PO; -MIRALAX17 GM PO; -OXYCODONE HCL10 MG PO; -PEPCID20 MG PO; -POTASSIUM20 PO; -PREDNISONE 20 M20 MG PO; -SPIRIVA INH; -THERA-M1 EAC1 PO; -UNICOMPLEX M TA1 TA1 PO; -VOLTAREN GEL 1100 G2 TOP
[2017-09-17 16:50] VITALS: BP 110/59
[2017-09-17 19:55] VITALS: BP 125/66
[2017-09-18 06:19] LABS: HEMATOCRIT 25.4 % (37.0-47.0); MCH 27.4 pg (26.0-34.0); MCHC 31.5 g/dL (28.0-37.0); RBC 2.92 mil/uL (4.20-5.00); RDW 22.9 % (10.5-14.5); WBC 5.5 thou/uL (4.0-11.0)
[2017-09-18 06:34] LABS: CALCIUM 8.5 mg/dL (8.5-10.1); POTASSIUM 3.7 mmol/L (3.5-5.1)
[2017-09-18 07:50] VITALS: BP 131/63
[2017-09-18 22:08] VITALS: BP 131/70
[2017-09-19 08:47] VITALS: BP 106/53
[2017-09-19] MEDS ORDERED: PREDNISONE 20 M20 MG PO (10:54)
[2017-09-19 20:19] VITALS: BP 117/67
[2017-09-20 03:51] LABS: ABSOLUTE NEUTROPHILS 4.3 thou/uL (1.4-8.2); BASOPHILS 0.4 % (0.0-2.0); EOSINOPHILS 0.9 % (0.0-3.0); HEMATOCRIT 26.1 % (37.0-47.0); HEMOGLOBIN 8.2 gm/dL (12.0-15.0); LYMPHOCYTES 18.2 % (24.0-44.0); MCHC 31.5 g/dL (28.0-37.0); MCV 85.5 fL (80.0-100.0); PLATELET COUNT 369 thou/uL (150-400); POLYS 75.5 % (36.0-66.0); RBC 3.05 mil/uL (4.20-5.00); RDW 22.3 % (10.5-14.5); WBC 5.7 thou/uL (4.0-11.0)
[2017-09-20 04:06] LABS: CALCIUM 8.7 mg/dL (8.5-10.1); MAGNESIUM 1.7 mg/dL (1.8-2.4); POTASSIUM 3.5 mmol/L (3.5-5.1)
[2017-09-20 07:35] VITALS: BP 125/64
[2017-09-20 19:31] VITALS: BP 111/66
[2017-09-21 07:50] VITALS: BP 117/66
[2017-09-22 07:30] VITALS: BP 129/60
[2017-09-22 19:46] VITALS: BP 121/62
[2017-09-23 05:13] LABS: ABSOLUTE NEUTROPHILS 5.3 thou/uL (1.4-8.2); BASOPHILS 0.7 % (0.0-2.0); EOSINOPHILS 1.2 % (0.0-3.0); HEMATOCRIT 27.2 % (37.0-47.0); HEMOGLOBIN 8.6 gm/dL (12.0-15.0); MCH 27.3 pg (26.0-34.0); MCHC 31.7 g/dL (28.0-37.0); MCV 86.1 fL (80.0-100.0); MONOCYTES 5.1 % (1.0-8.0); PLATELET COUNT 334 thou/uL (150-400); RBC 3.16 mil/uL (4.20-5.00); RDW 22.7 % (10.5-14.5); WBC 7.2 thou/uL (4.0-11.0)
[2017-09-23 05:23] LABS: CALCIUM 8.8 mg/dL (8.5-10.1); MAGNESIUM 1.9 mg/dL (1.8-2.4); POTASSIUM 3.3 mmol/L (3.5-5.1)
[2017-09-23 08:45] VITALS: BP 103/47
[2017-09-23 20:10] VITALS: BP 129/67
[2017-09-24 07:45] VITALS: BP 127/71
[2017-09-24 20:00] VITALS: BP 134/75
[2017-09-25 09:01] VITALS: BP 142/68
[2017-09-25 11:26] LABS: HEMATOCRIT 31.7 % (37.0-47.0); HEMOGLOBIN 9.9 gm/dL (12.0-15.0); MCH 27.3 pg (26.0-34.0); MCHC 31.2 g/dL (28.0-37.0); MCV 87.4 fL (80.0-100.0); RBC 3.62 mil/uL (4.20-5.00); RDW 23.3 % (10.5-14.5); WBC 11.9 thou/uL (4.0-11.0)
[2017-09-25 11:56] LABS: ALBUMIN 3.1 g/dL (3.4-5.0); CALCIUM 9.2 mg/dL (8.5-10.1); CREATININE 1.2 mg/dL (0.6-1.0); MAGNESIUM 1.8 mg/dL (1.8-2.4); POTASSIUM 3.4 mmol/L (3.5-5.1); TOTAL BILIRUBIN 0.7 mg/dL (<0.1-1.0); TOTAL PROTEIN 6.2 g/dL (6.4-8.2)
[2017-09-25 21:28] VITALS: BP 105/63
[2017-09-26 06:28] LABS: CALCIUM 9.2 mg/dL (8.5-10.1); CREATININE 1.3 mg/dL (0.6-1.0); POTASSIUM 3.9 mmol/L (3.5-5.1)
[2017-09-26 08:51] VITALS: BP 113/63
[2017-09-26 20:34] VITALS: BP 117/58
[2017-09-27 07:14] LABS: HEMATOCRIT 31.4 % (37.0-47.0); HEMOGLOBIN 9.8 gm/dL (12.0-15.0); MCH 27.6 pg (26.0-34.0); MCHC 31.4 g/dL (28.0-37.0); RBC 3.56 mil/uL (4.20-5.00); RDW 23.3 % (10.5-14.5); WBC 7.8 thou/uL (4.0-11.0)
[2017-09-27 07:24] LABS: CALCIUM 9.1 mg/dL (8.5-10.1); CREATININE 1.2 mg/dL (0.6-1.0); POTASSIUM 3.6 mmol/L (3.5-5.1)
[2017-09-27 09:00] VITALS: BP 112/56
[2017-09-27 19:42] VITALS: BP 114/60
[2017-09-28 07:06] LABS: CALCIUM 9.2 mg/dL (8.5-10.1); CREATININE 1.1 mg/dL (0.6-1.0); MAGNESIUM 2.4 mg/dL (1.8-2.4); POTASSIUM 4.3 mmol/L (3.5-5.1)
[2017-09-28 08:15] VITALS: BP 123/63
[2017-09-28 19:15] VITALS: BP 137/74
[2017-09-29 06:23] LABS: HEMATOCRIT 32.8 % (37.0-47.0); HEMOGLOBIN 10.3 gm/dL (12.0-15.0); MCH 27.9 pg (26.0-34.0); MCHC 31.5 g/dL (28.0-37.0); MCV 88.7 fL (80.0-100.0); RBC 3.69 mil/uL (4.20-5.00); RDW 24.1 % (10.5-14.5); WBC 7.7 thou/uL (4.0-11.0)
[2017-09-29 06:30] LABS: CALCIUM 9.3 mg/dL (8.5-10.1); CREATININE 1.1 mg/dL (0.6-1.0); MAGNESIUM 2.3 mg/dL (1.8-2.4); POTASSIUM 4.5 mmol/L (3.5-5.1)
[2017-09-29 08:43] VITALS: BP 148/83
[2017-09-29 20:31] VITALS: BP 148/79
[2017-09-30 07:35] VITALS: BP 130/64
[2017-09-30 22:49] VITALS: BP 140/83
[2017-10-01 08:30] VITALS: BP 109/67
[2017-10-01 20:32] VITALS: BP 113/63
[2017-10-02 06:39] LABS: HEMATOCRIT 33.1 % (37.0-47.0); HEMOGLOBIN 10.4 gm/dL (12.0-15.0); MCH 28.3 pg (26.0-34.0); MCHC 31.5 g/dL (28.0-37.0); MCV 89.8 fL (80.0-100.0); PLATELET COUNT 316 thou/uL (150-400); RBC 3.69 mil/uL (4.20-5.00); RDW 24.4 % (10.5-14.5); WBC 9.7 thou/uL (4.0-11.0)
[2017-10-02 06:49] LABS: CALCIUM 9.2 mg/dL (8.5-10.1); CREATININE 1.3 mg/dL (0.6-1.0); MAGNESIUM 2.2 mg/dL (1.8-2.4); POTASSIUM 4.1 mmol/L (3.5-5.1)
[2017-10-02 08:33] LABS: ABSOLUTE NEUTROPHILS 8.8 thou/uL (1.4-8.2); ANISOCYTOSIS 1+; PLATELET ESTIMATE NORMAL
[2017-10-02 09:38] VITALS: BP 125/52
[2017-10-02] MEDS ORDERED: VOLTAREN GEL 1100 G2 TOP (11:46)
[2017-10-02] MEDS ORDERED: IPRAT-ALBUT 0.5-3 ML INH ×2 (11:46)
[2017-10-02 20:36] VITALS: BP 130/60
[2017-10-06] MEDS ORDERED: HYDROCODONE-AP1 EAC6 PO (13:59)
== END 2017-10-03 04:37 | DRG 73 ==
PROVIDERS: Internal Medicine; Nurse Practitioner; Physical Medicine & Rehabilitation
DX: G61.81 Chronic inflammatory demyelinating polyneuritis (principal); L89.623 Pressure ulcer of left heel, stage 3; L89.613 Pressure ulcer of right heel, stage 3; J96.01 Acute respiratory failure with hypoxia; D62 Acute posthemorrhagic anemia; E87.0 Hyperosmolality and hypernatremia; N17.9 Acute kidney failure, unspecified; J98.11 Atelectasis; S81.812A Laceration without foreign body, left lower leg, initial encounter; F41.9 Anxiety disorder, unspecified; F32.9 Major depressive disorder, single episode, unspecified; E78.5 Hyperlipidemia, unspecified; E03.9 Hypothyroidism, unspecified; I95.9 Hypotension, unspecified; M21.371 Foot drop, right foot; I48.0 Paroxysmal atrial fibrillation; J44.9 Chronic obstructive pulmonary disease, unspecified; G47.33 Obstructive sleep apnea (adult) (pediatric); X58.XXXA Exposure to other specified factors, initial encounter; I50.9 Heart failure, unspecified; K21.9 Gastro-esophageal reflux disease without esophagitis; R53.81 Other malaise; E87.6 Hypokalemia; M62.838 Other muscle spasm; M48.061 Spinal stenosis, lumbar region without neurogenic claudication; Z90.49 Acquired absence of other specified parts of digestive tract; Z90.710 Acquired absence of both cervix and uterus; Z87.891 Personal history of nicotine dependence; Y93.89 Activity, other specified; Y92.89 Other specified places as the place of occurrence of the external cause; Y99.8 Other external cause status; Z79.899 Other long term (current) drug therapy; Z79.01 Long term (current) use of anticoagulants; Z98.42 Cataract extraction status, left eye; Z98.41 Cataract extraction status, right eye
CPT/HCPCS: 10112; 50010

== ENCOUNTER → 2017-10-09 | Outpatient (CLI) | payer OTHER ==
[~2017-10-09] MED LIST changes: +HYDROCODONE-AP1 EAC6 PO; +IPRAT-ALBUT 0.5-3 ML INH; +PREDNISONE 20 M20 MG PO; +VOLTAREN GEL 1100 G2 TOP
== END ==
LOC: HYPER
DX: T81.89XA Other complications of procedures, not elsewhere classified, initial encounter (principal); L89.623 Pressure ulcer of left heel, stage 3; L89.613 Pressure ulcer of right heel, stage 3; L97.822 Non-pressure chronic ulcer of other part of left lower leg with fat layer exposed; S51.012A Laceration without foreign body of left elbow, initial encounter; S51.011A Laceration without foreign body of right elbow, initial encounter; S81.801D Unspecified open wound, right lower leg, subsequent encounter; M62.81 Muscle weakness (generalized); E78.5 Hyperlipidemia, unspecified; E03.9 Hypothyroidism, unspecified; G61.81 Chronic inflammatory demyelinating polyneuritis; G62.9 Polyneuropathy, unspecified; M81.0 Age-related osteoporosis without current pathological fracture; Z87.01 Personal history of pneumonia (recurrent); Z90.710 Acquired absence of both cervix and uterus; Z98.49 Cataract extraction status, unspecified eye; F17.200 Nicotine dependence, unspecified, uncomplicated; Y92.89 Other specified places as the place of occurrence of the external cause; Y83.8 Other surgical procedures as the cause of abnormal reaction of the patient, or of later complication, without mention of misadventure at the time of the procedure; X58.XXXA Exposure to other specified factors, initial encounter; X58.XXXD Exposure to other specified factors, subsequent encounter; Y93.89 Activity, other specified; Y99.8 Other external cause status

== ENCOUNTER 2017-11-17 12:16 | Inpatient (IN) | payer OTHER ==
[~2017-11-17] VITALS: Ht 167.6 cm; Wt 86.2 kg
--- NOTE | ~2017-11-17 | EKG ---
[address] [address] ELECTROCARDIOGRAM REPORT Name: ANETA LECHUGA Room #: 362-P ADM IN M.R.#: [id number] Admission: 11/17/17 Attend Phys: Dez Milan MD Discharge: Date of : 47 Report #: [id number] THIS REPORT FOR: //name// [facility] Test Date: 2017-11-18 Test Time: 19:28:04 Pat Name: ANETA LECHUGA Department: Room: [facility] Gender: F [employer] Consultant: Ender LOVE : 1945 Requested By: Maddy Max Order Number: [id number] MD: Tremayne Guo Measurements Intervals Blairs Rate: 86 P: 27 IN: 156 QRS: 113 QRSD: 151 T: 7 QT: 431 QTc: 516 Interpretive Statements Sinus rhythm RBBB and LPFB Baseline wander in lead(s) V3 Compared to ECG 11/03/2017 10:38:17 No significant changes Electronically Signed On 11-21-2017 14:59:09 CDT by Tremayne Guo [email or web address] <ELECTRONICALLY SIGNED> By: Tremayne Guo MD 11/21/17 1459 27 27 Tremayne Guo MD /EPI
--- NOTE | ~2017-11-17 | HC ---
[facility] [place] [address] CONSULTATION Name: ANETA LECHUGA Room #: 362-[facility] IN M.R.#: [id number] Admission: 11/17/17 Attend Phys: Dez Milan MD Discharge: Date of : 47 Report #: [id number] THIS REPORT FOR: //name// CC: Dez Milan [facility] physician/PCP REFERRAL PHYSICIAN: Dr. Milan. REASON FOR REFERRAL: Hypoxia. HISTORY OF PRESENT ILLNESS: The patient is a 72-year-old white female who was admitted to the hospital with acute on chronic back pain. She was found to have an L1 endplate compression fracture. She had prior compression fracture involving the thoracic T5 and T6 undergoing kyphoplasty. Yesterday, the patient underwent vertebroplasty. Following the procedure, she developed profound hypoxia. A pulmonary consultation was requested. Currently, she is better. She complains of back pain. Otherwise, denies any chest pain, productive cough or hemoptysis. PAST MEDICAL HISTORY: Notable for COPD, obesity, generalized debility and weakness, atrial fibrillation, depression, hypothyroidism, heart failure, hypercholesterolemia, gastroesophageal reflux disease, chronic anemia, osteoarthritis, neuropathy, hypotension, past history of rib fractures on the right, chronic back pain as mentioned above and prior back surgery recently. PAST SURGICAL HISTORY: As mentioned above including hysterectomy and cataract surgery. ALLERGIES: None to medications. MEDICATIONS: Home medications are reviewed and current medications are reviewed in the MAR. FAMILY HISTORY: Noncontributory. SOCIAL HISTORY: The patient has smoked, but quit more than 3 months ago. She denies any alcohol use. REVIEW OF SYSTEMS: As mentioned above, otherwise notable for weakness and back pain. PHYSICAL EXAMINATION: GENERAL: She is awake, alert and appears mildly dyspneic. She does not appear in distress. VITAL SIGNS: Temperature is 98.3 degrees Fahrenheit, pulse is 72, respiratory [facility] [address] [place] [address] CONSULTATION Name: ANETA LECHUGA Room #: 362-P [facility] IN [facility]#: [id number] Admission: 11/17/17 Attend Phys: Dez Milan MD Discharge: Date of : 47 Report #: [id number] rate is 20, blood pressure is 121/70 mmHg and saturation is 97%. HEENT: Unremarkable. NECK: Supple without lymphadenopathy or thyromegaly. CHEST: Breath sounds are fair. Breath sounds are decreased due to poor effort. Few scattered crackles in the bases. No obvious wheezes. CARDIOVASCULAR: Normal S1 and S2. No murmurs or gallop. There is no JVD. There is no carotid bruit. Pulses are 2+/4+ bilaterally. ABDOMEN: Soft, nontender, no organomegaly or masses felt. GENITOURINARY: Deferred. RECTAL: Deferred. EXTREMITIES: There is no edema, cyanosis or clubbing. LABORATORY DATA: Chest x-ray this morning shows left basilar atelectasis, trace pleural effusion and cardiomegaly. Electrolytes are normal except for bicarbonate of 39. WBC 13,600, hemoglobin 12.4 and platelets are normal. Arterial blood gas revealed pH 7.32, pCO2 84, pO2 ? 29 on FiO2 100%. Saturation at this time was said to be 100%. Follow up arterial blood gas revealed pH 7.42, pCO2 64, pO2 80 on FiO2 of 50%. IMPRESSION: 1. Ywqeb-kt-[id number] hypercapnic hypoxic respiratory failure in this 72-year-old white female. She had a recent vertebroplasty. She has a history of COPD. She is obese along with generalized debility and weakness. Etiology likely related to hypoventilation associated with her back pain along with COPD and atelectasis. Pulmonary embolus is felt to be less likely. Pneumonia is unlikely based on the chest x-ray findings. 2. Multiple compression fractures as outlined on previous records including newest fracture in L1, status post kyphoplasty in L1, L2 and L4. 3. Paroxysmal atrial fibrillation on amiodarone. 4. Anemia of chronic disease. 5. Bilateral lower extremity wounds, chronic. 6. Hypothyroidism. 7. Chronic obstructive pulmonary disease. RECOMMENDATIONS: We will aggressively treat with bronchodilators, corticosteroids, chest physiotherapy as tolerated. Wean O2 for saturation 90%. DVT and GI prophylaxis recommended. Thank you for this consultation. <ELECTRONICALLY SIGNED> By: Surjit Del Valle MD 11/20/17 1841 [id number] Surjit Del Valle MD /nt
[~2017-11-17 12:16] MED LIST changes: +ALBUTEROL2.5 MG/31 INH; +ALLERGY RELIEF180 MG PO; +LASIX 40 MG TAB40 M1 PO; +LIPITOR 20 MG T20 M1 PO; +MIRALAX17 GM PO; +PEPCID20 MG PO; +POTASSIUM20 PO; +UNICOMPLEX M TA1 TA1 PO
[2017-11-17 12:21] VITALS: BP 133/62
[2017-11-17 13:46] LABS: HEMATOCRIT 33.5 % (37.0-47.0); HEMOGLOBIN 10.7 gm/dL (12.0-15.0); MCH 26.8 pg (26.0-34.0); MCHC 31.8 g/dL (28.0-37.0); MCV 84.1 fL (80.0-100.0); PLATELET COUNT 337 thou/uL (150-400); RBC 3.99 mil/uL (4.20-5.00); WBC 12.5 thou/uL (4.0-11.0)
[2017-11-17 13:49] LABS: CALCIUM 9.2 mg/dL (8.5-10.1); CREATININE 1.1 mg/dL (0.6-1.0); POTASSIUM 3.1 mmol/L (3.5-5.1)
[2017-11-17 14:24] LABS: ANISOCYTOSIS 2+; OVALOCYTES 1+
[2017-11-17] MEDS ORDERED: LASIX 20 MG TAB20 MG PO (14:31)
[2017-11-17 20:08] VITALS: BP 129/61
[2017-11-18] VITALS (10 sets, daily range): BP systolic 103–148; BP diastolic 50–81
[2017-11-18 06:29] LABS: HEMATOCRIT 34.7 % (37.0-47.0); HEMOGLOBIN 11.1 gm/dL (12.0-15.0); MCH 26.8 pg (26.0-34.0); MCV 83.6 fL (80.0-100.0); RBC 4.15 mil/uL (4.20-5.00); RDW 19.8 % (10.5-14.5); WBC 9.5 thou/uL (4.0-11.0)
[2017-11-18 06:45] LABS: CALCIUM 9.5 mg/dL (8.5-10.1); POTASSIUM 3.3 mmol/L (3.5-5.1)
[2017-11-18 19:40] LABS: BE(vivo) 13.6 mmol/L (-2 to +3); HCO3 43.5 mmol/L (22.0-26.0); sO2 47.4 % (92.0-98.0)
[2017-11-18 19:41] LABS: PCO2 84.9 mmHg (35.0-45.0); PO2 29.2 mmHg (80.0-100.0); pH 7.327 (7.360-7.450)
[2017-11-18 19:56] LABS: HEMATOCRIT 38.7 % (37.0-47.0); HEMOGLOBIN 12.4 gm/dL (12.0-15.0); MCH 27.2 pg (26.0-34.0); MCHC 32.1 g/dL (28.0-37.0); MCV 84.8 fL (80.0-100.0); RBC 4.56 mil/uL (4.20-5.00); RDW 20.3 % (10.5-14.5); WBC 13.6 thou/uL (4.0-11.0)
[2017-11-18 20:03] LABS: CALCIUM 9.9 mg/dL (8.5-10.1); CREATININE 1.1 mg/dL (0.6-1.0); POTASSIUM 3.3 mmol/L (3.5-5.1)
[2017-11-18 22:58] LABS: BE(vivo) 13.5 mmol/L (-2 to +3); HCO3 40.6 mmol/L (22.0-26.0); PCO2 64.1 mmHg (35.0-45.0); PO2 80.2 mmHg (80.0-100.0); sO2 95.7 % (92.0-98.0)
[2017-11-19 04:02] VITALS: BP 139/69
[2017-11-19 07:58] VITALS: BP 129/58
[2017-11-19 11:28] VITALS: BP 121/70
[2017-11-19 16:58] VITALS: BP 122/57
[2017-11-19 19:29] VITALS: BP 115/53
[2017-11-20 03:50] VITALS: BP 120/50
[2017-11-20 08:13] VITALS: BP 138/68
[2017-11-20 09:42] LABS: CALCIUM 9.2 mg/dL (8.5-10.1); CREATININE 1.4 mg/dL (0.6-1.0); MAGNESIUM 1.9 mg/dL (1.8-2.4); POTASSIUM 3.7 mmol/L (3.5-5.1)
[2017-11-20 11:25] VITALS: BP 95/56
[2017-11-20 12:40] VITALS: BP 111/60
[2017-11-20 15:12] VITALS: BP 132/77
[2017-11-20 19:20] VITALS: BP 114/62
[2017-11-21 03:55] VITALS: BP 140/73
[2017-11-21 08:06] VITALS: BP 137/72
[2017-11-21 11:37] VITALS: BP 124/61
== END 2017-11-21 15:56 | DRG 515 ==
LOC: ER 12:16 → 3W 14:13 → 4E 14:13 → EROBS 14:13 → 4E 20:45 → 3W 11-18 20:28
PROVIDERS: Hospitalist; Internal Medicine Pulmonary Disease; Nurse Practitioner Acute Care; Student in an Organized Health Care Education/Training Program
PROC: 0QS03ZZ Reposition Lumbar Vertebra, Percutaneous Approach (ICD-10-PCS; principal; 2017-11-18)
PROC: 5A09357 Assistance with Respiratory Ventilation, Less than 24 Consecutive Hours, Continuous Positive Airway Pressure (ICD-10-PCS; principal; 2017-11-18)
PROC: 0QU03JZ Supplement Lumbar Vertebra with Synthetic Substitute, Percutaneous Approach (ICD-10-PCS; principal; 2017-11-18)
PROC: 5A09357 Assistance with Respiratory Ventilation, Less than 24 Consecutive Hours, Continuous Positive Airway Pressure (ICD-10-PCS; 2017-11-19)
DX: M48.56XA Collapsed vertebra, not elsewhere classified, lumbar region, initial encounter for fracture (principal); J96.01 Acute respiratory failure with hypoxia; J96.02 Acute respiratory failure with hypercapnia; G61.81 Chronic inflammatory demyelinating polyneuritis; J96.11 Chronic respiratory failure with hypoxia; G89.29 Other chronic pain; E78.5 Hyperlipidemia, unspecified; I50.9 Heart failure, unspecified; I11.0 Hypertensive heart disease with heart failure; J44.9 Chronic obstructive pulmonary disease, unspecified; E03.9 Hypothyroidism, unspecified; G62.9 Polyneuropathy, unspecified; F32.9 Major depressive disorder, single episode, unspecified; E78.00 Pure hypercholesterolemia, unspecified; K21.9 Gastro-esophageal reflux disease without esophagitis; M19.90 Unspecified osteoarthritis, unspecified site; H26.9 Unspecified cataract; E66.9 Obesity, unspecified; I48.0 Paroxysmal atrial fibrillation; D63.8 Anemia in other chronic diseases classified elsewhere; G47.33 Obstructive sleep apnea (adult) (pediatric); E87.6 Hypokalemia; N28.9 Disorder of kidney and ureter, unspecified; Z90.710 Acquired absence of both cervix and uterus; Z79.899 Other long term (current) drug therapy; Z79.82 Long term (current) use of aspirin; Z68.30 Body mass index [BMI] 30.0-30.9, adult; Z87.891 Personal history of nicotine dependence; Z82.49 Family history of ischemic heart disease and other diseases of the circulatory system; Z79.51 Long term (current) use of inhaled steroids; Z90.49 Acquired absence of other specified parts of digestive tract
CPT/HCPCS: 10084; 10779

== ENCOUNTER → 2017-11-26 | Outpatient (CLI) | payer OTHER ==
[~2017-11-26] MED LIST changes: +CYCLOBENZAPRINE5 MG PO; +DULOXETINE HCL20 MG; +K-DUR 20 MEQ T20 MEQ PO; +KETOROLAC30 MG/1 M5 IM; +THERA-M1 EAC1 PO
== END ==
LOC: HYPER 11-05 09:02
DX: T81.89XD Other complications of procedures, not elsewhere classified, subsequent encounter (principal); S81.811D Laceration without foreign body, right lower leg, subsequent encounter; S81.802A Unspecified open wound, left lower leg, initial encounter; L89.613 Pressure ulcer of right heel, stage 3; L97.822 Non-pressure chronic ulcer of other part of left lower leg with fat layer exposed; E78.5 Hyperlipidemia, unspecified; E03.9 Hypothyroidism, unspecified; G62.9 Polyneuropathy, unspecified; G61.81 Chronic inflammatory demyelinating polyneuritis; I10 Essential (primary) hypertension; M81.0 Age-related osteoporosis without current pathological fracture; F17.200 Nicotine dependence, unspecified, uncomplicated; X58.XXXD Exposure to other specified factors, subsequent encounter; X58.XXXA Exposure to other specified factors, initial encounter; Y93.89 Activity, other specified; Y92.89 Other specified places as the place of occurrence of the external cause; Y99.8 Other external cause status; Y83.8 Other surgical procedures as the cause of abnormal reaction of the patient, or of later complication, without mention of misadventure at the time of the procedure

== ENCOUNTER → 2017-12-10 | Outpatient (CLI) | payer OTHER | LOC: CAT 14:02 | DX: S22.060D Wedge compression fracture of T7-T8 vertebra, subsequent encounter for fracture with routine healing (principal); M48.061 Spinal stenosis, lumbar region without neurogenic claudication; M25.78 Osteophyte, vertebrae; I11.0 Hypertensive heart disease with heart failure; I50.9 Heart failure, unspecified; I48.91 Unspecified atrial fibrillation; E03.9 Hypothyroidism, unspecified; E78.5 Hyperlipidemia, unspecified; K21.9 Gastro-esophageal reflux disease without esophagitis; M19.90 Unspecified osteoarthritis, unspecified site; J44.9 Chronic obstructive pulmonary disease, unspecified; X58.XXXD Exposure to other specified factors, subsequent encounter ==

== ENCOUNTER 2017-12-15 06:53 | Inpatient (IN) | payer OTHER ==
[~2017-12-15] VITALS: Ht 170.2 cm; Wt 82.6 kg
[2017-12-15] VITALS (7 sets, daily range): BP systolic 103–130; BP diastolic 60–69
[~2017-12-15 06:53] MED LIST changes: -CYCLOBENZAPRINE5 MG PO; -DULOXETINE HCL20 MG; -K-DUR 20 MEQ T20 MEQ PO; -KETOROLAC30 MG/1 M5 IM; -THERA-M1 EAC1 PO
[2017-12-15 09:42] LABS: HEMATOCRIT 36.5 % (37.0-47.0); HEMOGLOBIN 11.6 gm/dL (12.0-15.0); MCH 27.5 pg (26.0-34.0); MCHC 31.8 g/dL (28.0-37.0); MCV 86.5 fL (80.0-100.0); RBC 4.22 mil/uL (4.20-5.00); RDW 22.3 % (10.5-14.5); WBC 8.8 thou/uL (4.0-11.0)
[2017-12-15 09:56] LABS: CALCIUM 9.9 mg/dL (8.5-10.1)
[2017-12-15 09:58] LABS: POTASSIUM 2.9 mmol/L (3.5-5.1)
[2017-12-15 10:01] LABS: PROTIME 9.8 Seconds (9.3-11.4)
[2017-12-15] MEDS ORDERED: DULOXETINE HCL20 MG (17:10)
[2017-12-15] MEDS ORDERED: CYCLOBENZAPRINE5 MG PO (17:11)
[2017-12-15] MEDS ORDERED: KETOROLAC30 MG/1 M5 IM ×2 (17:14→17:16)
[2017-12-15] MEDS ORDERED: THERA-M1 EAC1 PO (17:18)
[2017-12-15] MEDS ORDERED: TRAMADOL 50 MG50 MG PO (17:19)
[2017-12-16 06:13] LABS: HEMATOCRIT 39.1 % (37.0-47.0); HEMOGLOBIN 12.4 gm/dL (12.0-15.0); MCH 27.5 pg (26.0-34.0); MCHC 31.6 g/dL (28.0-37.0); PLATELET COUNT 328 thou/uL (150-400); RBC 4.49 mil/uL (4.20-5.00); RDW 22.2 % (10.5-14.5); WBC 8.5 thou/uL (4.0-11.0)
[2017-12-16 06:22] LABS: CALCIUM 9.8 mg/dL (8.5-10.1); MAGNESIUM 1.9 mg/dL (1.8-2.4); POTASSIUM 3.7 mmol/L (3.5-5.1)
[2017-12-16 07:30] VITALS: BP 105/55
[2017-12-16 07:50] LABS: ABSOLUTE NEUTROPHILS 6.8 thou/uL (1.4-8.2); METAMYELOCYTES 1 %
[2017-12-16 07:51] LABS: ANISOCYTOSIS 3+; MACROCYTES 1+; MICROCYTES 1+; OVALOCYTES 1+; POLYCHROMASIA OCCASIONAL
[2017-12-16] MEDS ORDERED: K-DUR 20 MEQ T20 MEQ PO (09:30)
== END 2017-12-16 13:56 | DRG 515 ==
LOC: MRI 06:53 → 4W 14:34
PROVIDERS: Nuclear Medicine Nuclear Cardiology; Nurse Practitioner
PROC: 0PU43JZ Supplement Thoracic Vertebra with Synthetic Substitute, Percutaneous Approach (ICD-10-PCS; principal; 2017-12-15)
PROC: 0PS43ZZ Reposition Thoracic Vertebra, Percutaneous Approach (ICD-10-PCS; principal; 2017-12-15)
DX: M48.54XA Collapsed vertebra, not elsewhere classified, thoracic region, initial encounter for fracture (principal); E43 Unspecified severe protein-calorie malnutrition; G61.81 Chronic inflammatory demyelinating polyneuritis; I48.0 Paroxysmal atrial fibrillation; E78.5 Hyperlipidemia, unspecified; Z66 Do not resuscitate; J44.9 Chronic obstructive pulmonary disease, unspecified; G47.33 Obstructive sleep apnea (adult) (pediatric); K21.9 Gastro-esophageal reflux disease without esophagitis; E87.6 Hypokalemia; D63.8 Anemia in other chronic diseases classified elsewhere; E03.9 Hypothyroidism, unspecified; F32.9 Major depressive disorder, single episode, unspecified; I50.9 Heart failure, unspecified; I11.0 Hypertensive heart disease with heart failure; M19.90 Unspecified osteoarthritis, unspecified site; Z87.81 Personal history of (healed) traumatic fracture; Z87.891 Personal history of nicotine dependence; Z90.49 Acquired absence of other specified parts of digestive tract; Z90.710 Acquired absence of both cervix and uterus; Z79.82 Long term (current) use of aspirin; Z79.899 Other long term (current) drug therapy; Z82.49 Family history of ischemic heart disease and other diseases of the circulatory system
CPT/HCPCS: 10045

== ENCOUNTER → 2017-12-22 | Outpatient (CLI) | payer OTHER ==
[~2017-12-22] MED LIST changes: +CYCLOBENZAPRINE5 MG PO; +DULOXETINE HCL20 MG; +K-DUR 20 MEQ T20 MEQ PO; +KETOROLAC30 MG/1 M5 IM; +THERA-M1 EAC1 PO
== END ==
LOC: HYPER 12-10 06:20
DX: T81.89XD Other complications of procedures, not elsewhere classified, subsequent encounter (principal); L97.822 Non-pressure chronic ulcer of other part of left lower leg with fat layer exposed; S81.811D Laceration without foreign body, right lower leg, subsequent encounter; E03.9 Hypothyroidism, unspecified; E78.5 Hyperlipidemia, unspecified; G61.81 Chronic inflammatory demyelinating polyneuritis; G62.9 Polyneuropathy, unspecified; I10 Essential (primary) hypertension; M81.0 Age-related osteoporosis without current pathological fracture; F17.200 Nicotine dependence, unspecified, uncomplicated; Y83.8 Other surgical procedures as the cause of abnormal reaction of the patient, or of later complication, without mention of misadventure at the time of the procedure

== ENCOUNTER → 2018-01-06 | Outpatient (CLI) | payer OTHER ==
[~2018-01-06] VITALS: Ht 170.2 cm; Wt 83.0 kg
[~2018-01-06] MED LIST changes: +FENTANYL PATCH75 MCG TRANSDERM; +FIRVANQ50 MG/1 ML PO; +OXYCODONE HCL10 MG PO; +SPIRIVA INH
[2018-01-06 13:56] VITALS: BP 123/65
[2018-01-06 15:39] VITALS: BP 123/64
== END | disposition home or self-care (01) ==
LOC: MRI 12:06
DX: M80.08XA Age-related osteoporosis with current pathological fracture, vertebra(e), initial encounter for fracture (principal); M54.9 Dorsalgia, unspecified; G89.29 Other chronic pain; I11.0 Hypertensive heart disease with heart failure; I50.9 Heart failure, unspecified; E03.9 Hypothyroidism, unspecified; I48.91 Unspecified atrial fibrillation; E78.00 Pure hypercholesterolemia, unspecified; F32.9 Major depressive disorder, single episode, unspecified; K21.9 Gastro-esophageal reflux disease without esophagitis; D64.89 Other specified anemias; G62.9 Polyneuropathy, unspecified; J44.9 Chronic obstructive pulmonary disease, unspecified; Z90.49 Acquired absence of other specified parts of digestive tract; Z98.49 Cataract extraction status, unspecified eye; Z90.710 Acquired absence of both cervix and uterus; Z87.891 Personal history of nicotine dependence; Z79.899 Other long term (current) drug therapy; Z88.8 Allergy status to other drugs, medicaments and biological substances; Z79.82 Long term (current) use of aspirin

== ENCOUNTER → 2018-01-07 | Outpatient (CLI) | payer OTHER | LOC: HYPER 06:49 | DX: T81.89XD Other complications of procedures, not elsewhere classified, subsequent encounter (principal); L97.828 Non-pressure chronic ulcer of other part of left lower leg with other specified severity; S81.811D Laceration without foreign body, right lower leg, subsequent encounter; E78.5 Hyperlipidemia, unspecified; E03.9 Hypothyroidism, unspecified; G61.81 Chronic inflammatory demyelinating polyneuritis; G62.9 Polyneuropathy, unspecified; I10 Essential (primary) hypertension; M81.0 Age-related osteoporosis without current pathological fracture; F17.200 Nicotine dependence, unspecified, uncomplicated; X58.XXXD Exposure to other specified factors, subsequent encounter; Y83.8 Other surgical procedures as the cause of abnormal reaction of the patient, or of later complication, without mention of misadventure at the time of the procedure ==